=== PATIENT | male | born 1970 | race Caucasian/White ===

== ENCOUNTER 2021-02-25 16:39 | Emergency (ER) | payer OTHER ==
[~2021-02-25] VITALS: Ht 180.3 cm; Wt 136.1 kg
[2021-02-25 19:44] VITALS: BP 112/64
[2021-02-25] MEDS ORDERED: KETOROLAC TROMETH 60MG/2ML VIAL IM ONE (19:45)
== END 2021-02-25 20:23 | disposition home or self-care (01) ==
LOC: ER 16:39
DX: S46.911A Strain of unspecified muscle, fascia and tendon at shoulder and upper arm level, right arm, initial encounter (principal); M79.674 Pain in right toe(s); E11.9 Type 2 diabetes mellitus without complications; W18.00XA Striking against unspecified object with subsequent fall, initial encounter; Y93.89 Activity, other specified; Y92.89 Other specified places as the place of occurrence of the external cause; Y99.8 Other external cause status
CPT/HCPCS: 29105; 73030; 73620; 96372; 99284; J1885

== ENCOUNTER 2021-05-17 12:11 | Emergency (ER) | payer OTHER ==
[~2021-05-17] VITALS: Ht 180.3 cm; Wt 133.8 kg
[2021-05-17] MEDS ORDERED: HYDROcodone-ACET 10/325MG TAB PO ONE (15:45)
[2021-05-17 16:14] VITALS: BP 108/65
== END 2021-05-17 16:39 | disposition home or self-care (01) ==
LOC: ER 12:11
DX: S82.891A Other fracture of right lower leg, initial encounter for closed fracture (principal); S46.911A Strain of unspecified muscle, fascia and tendon at shoulder and upper arm level, right arm, initial encounter; E11.9 Type 2 diabetes mellitus without complications; W01.0XXA Fall on same level from slipping, tripping and stumbling without subsequent striking against object, initial encounter; Y93.89 Activity, other specified; Y92.89 Other specified places as the place of occurrence of the external cause; Y99.8 Other external cause status
CPT/HCPCS: 29515; 71101; 73030; 73610

== ENCOUNTER 2021-10-29 09:43 | Emergency (ER) | payer MEDICAID ==
[~2021-10-29] VITALS: Ht 180.3 cm; Wt 136.1 kg
[2021-10-29 10:48] LABS: Basophils # (auto) 0.1 10 ^3/uL (0-0.2); Eosinophils # (auto) 0.2 10 ^3/uL (0-0.8); Lymphocytes # (auto) 2.2 10 ^3/uL (0.4-5.4); Mean Corpuscular Volume 62.5 fL (80.0-100.0); Monocytes # (auto) 0.5 10 ^3/uL (0-1.3); Neutrophils # (auto) 4.4 10 ^3/uL (1.6-8.6); White Blood Cell 7.3 10^3/uL (4.4-10.8)
[2021-10-29 10:50] LABS: Basophils % (auto) 0.8 % (0.0-2.0); Eosinophils % (auto) 2.1 % (0.0-7.0); Hematocrit 38.1 % (41.0-53.0); Hemoglobin 12.1 g/dL (13.5-17.5); Mean Corpuscular Hemoglobin 19.8 pg (28.0-32.0); Mean Corpuscular Hgb Conc. 31.6 g/dL (32.0-36.0); Monocytes % (auto) 7.1 % (0.0-12.0); Nucleated Red Blood Cells % 0.1 %; Red Cell Distribution Width 15.4 % (11.8-14.3)
[2021-10-29 10:53] LABS: Albumin 3.5 g/dL (3.4-5.0); Calcium 8.9 mg/dL (8.5-10.1); Potassium 4.3 mmol/L (3.5-5.1)
[2021-10-29 10:57] LABS: BUN/Creatinine Ratio 12.4; Bilirubin, Total 0.8 mg/dL (0.2-1.0); Total Protein 7.4 g/dL (6.4-8.2)
[2021-10-29 12:45] VITALS: BP 144/77
== END 2021-10-29 12:45 | disposition home or self-care (01) ==
LOC: ER 09:43
DX: K43.2 Incisional hernia without obstruction or gangrene (principal); E11.9 Type 2 diabetes mellitus without complications
CPT/HCPCS: 36415; 74176; 80053; 83690; 84484; 85025

== ENCOUNTER 2022-05-21 06:30 | Emergency (ER) | payer MEDICAID ==
[~2022-05-21] VITALS: Ht 180.3 cm; Wt 136.0 kg
[2022-05-21 07:19] VITALS: BP 113/90
[2022-05-21] MEDS ORDERED: SODIUM CHLORIDE 0.9% 500 ML IVB ONE (07:45)
[2022-05-21] MEDS ORDERED: MORPHINE SULFATE 4 MG/ML SYR/VIAL IV ONE (07:45)
[2022-05-21] MEDS ORDERED: ONDANSETRON HCL 4 MG/2 ML VIAL IV ONE (07:45)
[2022-05-21 08:44] LABS: Urine Bacteria NONE SEEN /hpf (None Seen); Urine Blood Negative /uL (Negative); Urine Specific Gravity 1.029 (1.001-1.035); Urine WBC <1 /hpf (0 - 3)
[2022-05-21] MEDS ORDERED: HYDR-4902 PO (08:48)
[2022-05-21 08:53] LABS: Basophils # (auto) 0.1 10 ^3/uL (0-0.2); Basophils % (auto) 0.9 % (0.0-2.0); Eosinophils # (auto) 0.2 10 ^3/uL (0-0.8); Eosinophils % (auto) 2.1 % (0.0-7.0); Hematocrit 40.7 % (41.0-53.0); Hemoglobin 13.2 g/dL (13.5-17.5); Lymphocytes # (auto) 2.6 10 ^3/uL (0.4-5.4); Lymphocytes % (auto) 29.2 % (10.0-50.0); Mean Corpuscular Hemoglobin 20.3 pg (28.0-32.0); Mean Corpuscular Hgb Conc. 32.5 g/dL (32.0-36.0); Mean Corpuscular Volume 62.5 fL (80.0-100.0); Monocytes # (auto) 0.6 10 ^3/uL (0-1.3); Monocytes % (auto) 6.6 % (0.0-12.0); Neutrophils # (auto) 5.5 10 ^3/uL (1.6-8.6); Neutrophils % (auto) 61.2 % (37.0-80.0); Nucleated Red Blood Cells % 0.2 %; Red Blood Cells 6.51 10^6/uL (4.5-5.90); Red Cell Distribution Width 14.9 % (11.8-14.3)
[2022-05-21 09:31] LABS: Albumin 3.8 g/dL (3.4-5.0); Calcium 8.9 mg/dL (8.5-10.1); Potassium 4.4 mmol/L (3.5-5.1)
[2022-05-21 09:34] LABS: BUN/Creatinine Ratio 14.2; Bilirubin, Total 0.8 mg/dL (0.2-1.0); Total Protein 7.7 g/dL (6.4-8.2)
== END 2022-05-21 15:09 | disposition home or self-care (01) ==
LOC: ER 06:30
DX: K40.90 Unilateral inguinal hernia, without obstruction or gangrene, not specified as recurrent (principal); E11.9 Type 2 diabetes mellitus without complications
CPT/HCPCS: 36415; 74176; 80053; 81001; 82150; 82962; 83690; 85025

== ENCOUNTER 2022-08-24 12:01 | Emergency (ER) | payer MEDICAID ==
[~2022-08-24] VITALS: Ht 180.3 cm; Wt 136.3 kg
[~2022-08-24 12:01] MED LIST: HYDR-4902 PO
[2022-08-24 12:40] VITALS: BP 118/70
[2022-08-24] MEDS ORDERED: CEPH-510 PO (14:02)
== END 2022-08-24 14:06 | disposition home or self-care (01) ==
LOC: ER 12:01
DX: S61.244A Puncture wound with foreign body of right ring finger without damage to nail, initial encounter (principal); E11.9 Type 2 diabetes mellitus without complications; W46.0XXA Contact with hypodermic needle, initial encounter; Y93.89 Activity, other specified; Y92.89 Other specified places as the place of occurrence of the external cause; Y99.8 Other external cause status
CPT/HCPCS: 10120

== ENCOUNTER 2023-07-15 17:40 | Emergency (ER) | payer MEDICAID ==
[~2023-07-15] VITALS: Ht 175.3 cm; Wt 138.2 kg
[~2023-07-15 17:40] MED LIST changes: +CEPH-510 PO
[2023-07-15] MEDS ORDERED: ONDANSETRON HCL 4 MG/2 ML VIAL IV ONE (18:15)
[2023-07-15] MEDS ORDERED: SODIUM CHLORIDE 0.9% 1,000 ML IV ONE (18:15)
[2023-07-15 19:30] LABS: Basophils # (auto) 0.1 10 ^3/uL (0-0.2); Basophils % (auto) 0.6 % (0.0-2.0); Eosinophils # (auto) 0.1 10 ^3/uL (0-0.8); Eosinophils % (auto) 1.4 % (0.0-7.0); Hematocrit 38.4 % (41.0-53.0); Lymphocytes # (auto) 3.7 10 ^3/uL (0.4-5.4); Mean Corpuscular Hemoglobin 19.6 pg (28.0-32.0); Mean Corpuscular Hgb Conc. 31.3 g/dL (32.0-36.0); Mean Corpuscular Volume 62.6 fL (80.0-100.0); Monocytes # (auto) 0.6 10 ^3/uL (0-1.3); Monocytes % (auto) 6.1 % (0.0-12.0); Neutrophils % (auto) 56.9 % (37.0-80.0); Nucleated Red Blood Cells % 0.2 %; Red Blood Cells 6.12 10^6/uL (4.5-5.90); Red Cell Distribution Width 14.7 % (11.8-14.3); White Blood Cell 10.6 10^3/uL (4.4-10.8)
[2023-07-15 19:40] LABS: Alanine Aminotransferase 14 U/L (7-40); Albumin 4.4 g/dL (3.2-4.8); Alkaline Phosphatase 105 U/L (46-116); Anion Gap 10 (5-15); Aspartate Aminotransferase 10 U/L (13-40); BUN/Creatinine Ratio 7.6 (10.0-20.0); Bilirubin, Total 0.9 mg/dL (0.2-1.0); Blood Urea Nitrogen 9 mg/dL (9-23); Calcium 9.5 mg/dL (8.7-10.4); Carbon Dioxide 25 mmol/L (20-30); Chloride 101 mmol/L (98-107); Glucose 249 mg/dL (74-106); Potassium 3.9 mmol/L (3.5-5.1); Sodium 136 mmol/L (136-145); Total Protein 7.5 g/dL (5.7-8.2)
[2023-07-15 20:09] LABS: Hypochromia Moderate; Platelet Estimate Adequate
[2023-07-15 20:45] LABS: Urine Bacteria NONE SEEN /hpf (None Seen); Urine Blood Negative /uL (Negative); Urine Clarity Clear (Clear); Urine Color Yellow (Yellow); Urine Protein, UAD Negative (Negative); Urine Specific Gravity 1.025 (1.001-1.035); Urine WBC <1 /hpf (0 - 3); Urine pH 5.5 (5.0-8.0)
[2023-07-15] MEDS ORDERED: ZOFR4T PO (21:10)
[2023-07-15 21:24] VITALS: BP 104/54; PULSE 85; RESP 20; TEMP 98.5; O2SAT 92
== END 2023-07-15 21:33 | disposition home or self-care (01) ==
LOC: ER 17:40
DX: E11.65 Type 2 diabetes mellitus with hyperglycemia (principal); I10 Essential (primary) hypertension
CPT/HCPCS: 36415; 71046; 80053; 81001; 82962; 85025; 96361; 96374; 99284; J2405; J7030

== ENCOUNTER 2024-01-17 21:01 | Emergency (ER) | payer MEDICAID ==
[~2024-01-17] VITALS: Ht 180.3 cm; Wt 141.5 kg
[~2024-01-17 21:01] MED LIST changes: +IBUP-1456 PO; +ZOFR4T PO
[2024-01-17 22:04] LABS: Basophils # (auto) 0.1 10 ^3/uL (0-0.2); Basophils % (auto) 0.9 % (0.0-2.0); Eosinophils # (auto) 0.2 10 ^3/uL (0-0.8); Hemoglobin 11.5 g/dL (13.5-17.5); Lymphocytes # (auto) 3.3 10 ^3/uL (0.4-5.4); Mean Corpuscular Hemoglobin 19.8 pg (28.0-32.0); Monocytes # (auto) 0.9 10 ^3/uL (0-1.3); Neutrophils % (auto) 60.6 % (37.0-80.0); Nucleated Red Blood Cells % 0.1 %
[2024-01-17 22:06] LABS: Hematocrit 36.4 % (41.0-53.0); Lymphocytes % (auto) 28.5 % (10.0-50.0); Mean Corpuscular Hgb Conc. 31.4 g/dL (32.0-36.0); Neutrophils # (auto) 6.9 10 ^3/uL (1.6-8.6); Red Blood Cells 5.78 10^6/uL (4.5-5.90); Red Cell Distribution Width 14.8 % (11.8-14.3); White Blood Cell 11.4 10^3/uL (4.4-10.8)
[2024-01-17 22:22] LABS: Alanine Aminotransferase 14 U/L (7-40); Alkaline Phosphatase 101 U/L (46-116); Anion Gap 7 (5-15); Aspartate Aminotransferase < 8 U/L (13-40); BUN/Creatinine Ratio 12.3 (10.0-20.0); Bilirubin, Total 0.6 mg/dL (0.2-1.0); Blood Urea Nitrogen 13 mg/dL (9-23); Calcium 9.4 mg/dL (8.5-10.1); Carbon Dioxide 26 mmol/L (20-30); Chloride 102 mmol/L (98-107); Glucose 344 mg/dL (74-106); Sodium 135 mmol/L (136-145); Total Protein 6.8 g/dL (5.7-8.2)
[2024-01-17 23:51] LABS: Urine Bacteria None Seen /hpf (None Seen)
[2024-01-18 00:32] VITALS: BP 136/70; PULSE 80; RESP 80; TEMP 97.5; O2SAT 95
[2024-01-18 01:08] LABS: Urine Blood Negative /uL (Negative); Urine Clarity Clear (Clear); Urine Color Light-Yellow (Yellow); Urine Protein, UAD Negative (Negative); Urine Specific Gravity 1.031 (1.001-1.035); Urine Urobilinogen 2 mg/dL (Negative); Urine WBC <1 /hpf (0 - 3); Urine pH 5.5 (5.0-9.0)
== END 2024-01-18 00:34 | disposition home or self-care (01) ==
LOC: ER 21:01
DX: E11.65 Type 2 diabetes mellitus with hyperglycemia (principal); I10 Essential (primary) hypertension; Z98.890 Other specified postprocedural states; Z79.899 Other long term (current) drug therapy
CPT/HCPCS: 36415; 80053; 81001; 82010; 82962; 85025

== ENCOUNTER 2024-03-29 05:18 | Emergency (ER) | payer MEDICAID ==
[~2024-03-29] VITALS: Ht 180.3 cm; Wt 139.1 kg
[2024-03-29 07:11] LABS: Basophils # (auto) 0.1 10 ^3/uL (0-0.2); Eosinophils # (auto) 0.2 10 ^3/uL (0-0.8); Monocytes # (auto) 0.8 10 ^3/uL (0-1.3); Monocytes % (auto) 8.2 % (0.0-12.0); Nucleated Red Blood Cells % 0.2 %; White Blood Cell 9.6 10^3/uL (4.4-10.8)
[2024-03-29 07:12] LABS: Basophils % (auto) 0.7 % (0.0-2.0); Eosinophils % (auto) 2.2 % (0.0-7.0); Hematocrit 36.4 % (41.0-53.0); Hemoglobin 11.9 g/dL (13.5-17.5); Lymphocytes # (auto) 2.9 10 ^3/uL (0.4-5.4); Lymphocytes % (auto) 30.6 % (10.0-50.0); Mean Corpuscular Hemoglobin 20.8 pg (28.0-32.0); Mean Corpuscular Hgb Conc. 32.6 g/dL (32.0-36.0); Neutrophils # (auto) 5.6 10 ^3/uL (1.6-8.6); Neutrophils % (auto) 58.3 % (37.0-80.0); Platelet Count (auto) 281 10^3/uL (140-450); Red Blood Cells 5.69 10^6/uL (4.5-5.90)
[2024-03-29 07:18] LABS: Chloride 104 mmol/L (98-107); Sodium 136 mmol/L (136-145)
[2024-03-29 07:19] LABS: Anion Gap 2 (5-15); Carbon Dioxide 30 mmol/L (20-30)
[2024-03-29 07:20] LABS: Calcium 9.6 mg/dL (8.7-10.4)
[2024-03-29 07:24] LABS: BUN/Creatinine Ratio 13.1 (10.0-20.0); Blood Urea Nitrogen 13 mg/dL (9-23); Glucose 205 mg/dL (74-106)
[2024-03-29] MEDS ORDERED: AZIT1POW PO (08:48)
[2024-03-29 10:49] VITALS: BP 120/72; PULSE 78; RESP 18; TEMP 97.8; O2SAT 94
== END 2024-03-29 11:06 | disposition home or self-care (01) ==
LOC: ER 05:18
DX: J20.9 Acute bronchitis, unspecified (principal); I10 Essential (primary) hypertension; E11.9 Type 2 diabetes mellitus without complications; E78.5 Hyperlipidemia, unspecified; Z98.890 Other specified postprocedural states; Z79.899 Other long term (current) drug therapy
CPT/HCPCS: 36415; 71046; 80048; 84484; 85025; 93005

== ENCOUNTER 2024-07-07 05:19 | Emergency (ER) | payer MEDICAID ==
[~2024-07-07] VITALS: Ht 180.3 cm; Wt 139.0 kg
[~2024-07-07 05:19] MED LIST changes: +AZIT1POW PO
[2024-07-07 06:35] VITALS: BP 107/66; PULSE 95; RESP 19; TEMP 98.1; O2SAT 95
[2024-07-07] MEDS ORDERED: IBUP-1455 PO (06:59)
[2024-07-07] MEDS ORDERED: METH4PAK PO (06:59)
--- NOTE | 2024-07-07 07:00 | ED.PDOC ---
Back pain HPI HPI Comments Portions of this chart may have been created with an modal fluency direct voice recognition software. Occasional wrong-word or "sound-alike" substitutions may have occurred due to the inherent limitations of voice recognition software. Please read the chart carefully and recognize, using context, where these substitutions have occurred. This is a pleasant 53-year-old gentleman with a history of diabetes, hyperlipidemia, hypertension, who presents with a chief complaint of atraumatic nonradiating right shoulder pain x1 day. Patient reports the pain is like an electric-like sensation that radiates from the neck and shoots down the arm Symptoms are also described as burning and worsened with abduction of the right upper extremity Onset occurred this morning after waking up Symptoms described as moderate Denies chest pain shortness of breath Chief Complaint: Neck Pain Time Seen by MD: 06:26 Primary Care Provider: "I don't know" Reviewed Notes: Nurses Notes, Medications, Allergies Allergies: Coded Allergies: No Known Drug Allergy (Verified Allergy, Unknown, 05/17/21) Home Meds Active Scripts Azithromycin (Zithromax) 1 Gm Pow, 1 PACK PO ONCE, #1 PACK Prov:JOESPH NIELSEN MD 03/29/24 Ibuprofen (Ibuprofen) 800 Mg Tab, 1 TAB PO TID, #30 TAB Prov:MARY ANN GREENE 10/17/23 Ondansetron Odt 4MG Tab (ZOFRAN PO) 4 Mg Tb, 4 MG PO Q8HP PRN for 5 Days, #15 TAB ODT TAB-DISSOLVE IN MOUTH, THEN SWALLOW Prov:JOESPH NIELSEN MD 07/15/23 Cephalexin ( Keflex 500) 500 Mg Cap, 1 CAP PO QID, #28 CAP Prov:MARY ANN GREENE 08/24/22 Hydrocodone-Acetaminophen (Hydrocodone Bitartrate/AC 5-325 mg) 1 Tab Tab, 1 TAB PO Q6HP PRN for 7 Days, #28 TAB Prov:JOESPH NIELSEN MD 05/21/22 Information Source: Patient Mode of Arrival: Ambulatory Past Medical History PAST MEDICAL HISTORY: DM, High Lipids, HTN Surgical History: Hernia Repair, Tonsillectomy Family History Family History: Family hx of DM, Family hx of Cancer Social History Smoker: Non-Smoker Alcohol: Occasionally Drugs: Denies Drug Use Lives In: Home All Other Systems: Reviewed and Negative (Per HPI) Physical Exam General Appearance: No Apparent Distress, Normal HEENT: Normal ENT Inspection, Pharynx Normal, TMs Normal Neck: Full Range of Motion, Non-Tender, Normal, Normal Inspection Respiratory: Chest Non-Tender, Lungs Clear, No Accessory Muscle Use, No Respiratory Distress, Normal Breath Sounds Cardiovascular: No Edema, No JVD, No Murmur, No Gallop, Normal Peripheral Pulses, Regular Rate/Rhythm Breast Exam: Deferred Gastrointestinal: No Organomegaly, Non Tender, No Pulsatile Mass, Normal Bowel Sounds, Soft Genitalia: Deferred Pelvic: Deferred Rectal: Deferred Extremities: No calf tenderness, Normal capillary refill, Normal inspection, Normal range of motion, Non-tender, No pedal edema Musculoskeletal : Location: Right Extremity Location: Shoulder (No gross abnormality on inspection. No shoulder drop visible. No clavicular tenderness on palpation. Palpation tenderness to coracoid process and acromion process. No scapular, supraspinatus, infraspinatus tenderness to touch. Limited flexion passive movement due to pain. Pain with abduction. ) Apperance: Normal Neurologic: Alert, division merchandise manager II-XII nml as Tested, No Motor Deficits, Normal Affect, Normal Mood, No Sensory Deficits Cerebellar Function: Normal Reflexes: Normal Skin: Dry, Normal Color, Warm Lymphatic: No Adenopathy Was a procedure done? Was a procedure done?: No Back Pain Differential Dx Differential Diagnosis: Musculoskeletal Pain X-Ray, Labs, Meds, VS Vital Signs Date Time Temp Pulse Resp B/P (MAP) Pulse Ox O2 Delivery O2 Flow Rate FiO2 07/07/24 06:35 98.1 95 19 107/66 (80) 95 98.1 07/07/24 06:35 95 19 95 Room Air 07/07/24 05:28 98.1 95 19 107/66 (80) 95 X-Ray, Labs, Meds, VS Comment History and physical exam consistent with cervical radiculopathy. Symptomatic treatment will be initiated at discharge Supportive care advised (rest, ice, heat, NSAIDs, stretching exercises) Massage muscles with cold pack or ice for 20 minutes 4 times per day. Usually most useful if there is swelling during the first 48 hours Heating pad on the most painful area for 20 minutes to relieve muscle spasm Sleep and the most comfortable sleeping position (usually on the side with knees bent) Light stretching, no strenuous activity, avoid frequent bending, avoid carrying heavy objects Discussed possible benefits of yoga and acupuncture Return precautions discussed including Inability to walk/bear weight Paresthesia/weakness/leg pain Fecal/urinary incontinence Any worsening symptoms Time of 1ST Reevaluation: 06:58 Reevaluation 1ST: Improved Patient Education/Counseling: Diagnosis, Treatment Family Education/Counseling: Diagnosis, Treatment Departure 1 Departure Time of Disposition: 06:58 Impression: Primary Impression: Cervical radiculopathy Disposition: HOME / SELF CARE / HOMELESS Condition: Stable e-Prescriptions Methylprednisolone (Medrol Dosepak) 4 Mg Thai 4 MG PO UD, #21 TAB UAD Prov: ANTONY AUGUST NP 07/07/24 Ibuprofen Micronized (Ibuprofen) 800 Mg Tab 800 MG PO TIDWM for 14 Days, #42 TAB 0 Refills Prov: ANTONY AUGUST NP 07/07/24 Discharged With: Self Critical Care Note Critical Care Time?: No Stability Stability form required: No Heart Score Heart Score: Heart Score Response (Comments) Value History N/A 0 EKG N/A 0 Age N/A 0 Risk Factors N/A 0 Troponin N/A 0 Total 0 ANTONY AUGUST NP Jul 07, 2024 07:00
[2024-07-07] MEDS: KETOROLAC TROMETH 60MG/2ML VIAL IM ONE (07:14)
== END 2024-07-07 07:22 | disposition home or self-care (01) ==
LOC: ER 05:19
DX: M54.12 Radiculopathy, cervical region (principal); E11.9 Type 2 diabetes mellitus without complications; E78.5 Hyperlipidemia, unspecified; I10 Essential (primary) hypertension; Z79.899 Other long term (current) drug therapy; Z98.890 Other specified postprocedural states
CPT/HCPCS: 96372; 99283; J1885

== ENCOUNTER 2024-09-13 03:52 | Emergency (ER) | payer MEDICAID ==
[~2024-09-13] VITALS: Ht 180.3 cm; Wt 138.7 kg
[~2024-09-13 03:52] MED LIST changes: +IBUP-1455 PO; +METH4PAK PO
[2024-09-13] MEDS: methylPREDNISolone SOD SUCC 125 MG/2 ML VL IM ONE (07:16)
[2024-09-13] MEDS: KETOROLAC TROMETH 30 MG/ML 1ML VIAL IM ONE (07:16)
[2024-09-13] MEDS ORDERED: CYCL-837 PO (07:17)
[2024-09-13] MEDS ORDERED: IBUP-1455 PO (07:17)
--- NOTE | 2024-09-13 07:17 | ED.PDOC ---
Musculoskeletal HPI Comments 53-year-old male complaining of right shoulder pain x3 weeks. States no recent injury. Says he woke up the pain started hernia. Pain radiates to his neck. Nothing makes it better, movement makes it worse. States the pain is worse in the morning and then by the time he starts moving pain started to decrease. Chief Complaint: Upper Extremity Time Seen by MD: 06:43 Primary Care Provider: "I don't know" Reviewed Notes: Nurses Notes Allergies: Coded Allergies: No Known Drug Allergy (Verified Allergy, Unknown, 05/17/21) Home Meds Active Scripts Methylprednisolone (Medrol Dosepak) 4 Mg Thai, 4 MG PO UD, #21 TAB UAD Prov:ANTONY AUGUST NP 07/07/24 Ibuprofen Micronized (Ibuprofen) 800 Mg Tab, 800 MG PO TIDWM for 14 Days, #42 TAB 0 Refills Prov:ANTONY AUGUST NP 07/07/24 Azithromycin (Zithromax) 1 Gm Pow, 1 PACK PO ONCE, #1 PACK Prov:JOESPH NIELSEN MD 03/29/24 Ibuprofen (Ibuprofen) 800 Mg Tab, 1 TAB PO TID, #30 TAB Prov:MARY ANN GREENE 10/17/23 Ondansetron Odt 4MG Tab (ZOFRAN PO) 4 Mg Tb, 4 MG PO Q8HP PRN for 5 Days, #15 TAB ODT TAB-DISSOLVE IN MOUTH, THEN SWALLOW Prov:JOESPH NIELSEN MD 07/15/23 Cephalexin ( Keflex 500) 500 Mg Cap, 1 CAP PO QID, #28 CAP Prov:MARY ANN GREENE 08/24/22 Hydrocodone-Acetaminophen (Hydrocodone Bitartrate/AC 5-325 mg) 1 Tab Tab, 1 TAB PO Q6HP PRN for 7 Days, #28 TAB Prov:JOESPH NIELSEN MD 05/21/22 Information Source: Patient Mode of Arrival: Ambulatory Past Medical History PAST MEDICAL HISTORY: DM, High Lipids, HTN Surgical History: Hernia Repair, Tonsillectomy Family History Family History: Family hx of DM, Family hx of Cancer Social History Smoker: Non-Smoker Alcohol: Occasionally Drugs: Denies Drug Use Lives In: Home Constitutional: denies: chills, diaphoresis, fatigue, fever, malaise, sweats, weakness, others EENTM: denies: blurred vision, double vision, ear bleeding, ear discharge, ear drainage, ear pain, ear ringing, eye pain, eye redness, hearing loss, mouth pain, mouth swelling, nasal discharge, nose bleeding, nose congestion, nose pain, photophobia, tearing, throat pain, throat swelling, voice changes, others Respiratory: denies: cough, hemoptysis, orthopnea, SOB at rest, shortness of breath, SOB with excertion, stridor, wheezing, others Cardiovascular: denies: chest pain, dizzy spells, diaphoresis, Dyspnea on exertion, edema, irregular heart beat, left arm pain, lightheadedness, palpitations, PND, syncope, others Gastrointestinal: denies: abdomen distended, abdominal pain, blood streaked bowels, constipated, diarrhea, dysphagia, difficulty swallowing, hematemesis, melena, nausea, poor appetite, poor fluid intake, rectal bleeding, rectal pain, vomiting, others Genitourinary: denies: burning, dysuria, flank pain, frequency, hematuria, incontinence, penile discharge, penile sore, pain, testicle pain, testicle swelling, urgency, others Neurological: denies: dizziness, fainting, headache, left sided numbness, left sided weakness, numbness, paresthesia, pre-existing deficit, right sided numbness, right sided weakness, seizure, speech problems, tingling, tremors, weakness, others Musculoskeletal: reports: joint pain, joint swelling; denies: back pain, gout, muscle pain, muscle stiffness, neck pain, others Integumetry: denies: bruises, change in color, change in hair/nails, dryness, laceration, lesions, lumps, rash, wounds, others Allergic/Immunocompromised: denies: Difficulty Healing, Frequent Infections, Hives, Itching, others Physical Exam General Appearance: No Apparent Distress, Normal HEENT: Normal ENT Inspection, Pharynx Normal, TMs Normal Neck: Full Range of Motion, Non-Tender, Normal, Normal Inspection Respiratory: Chest Non-Tender, Lungs Clear, No Accessory Muscle Use, No Respiratory Distress, Normal Breath Sounds Cardiovascular: No Edema, No JVD, No Murmur, No Gallop, Normal Peripheral Pulses, Regular Rate/Rhythm Breast Exam: Deferred Gastrointestinal: No Organomegaly, Non Tender, No Pulsatile Mass, Normal Bowel Sounds, Soft Genitalia: Deferred Pelvic: Deferred Rectal: Deferred Extremities: No calf tenderness, Normal capillary refill, Normal inspection, Normal range of motion, Non-tender, No pedal edema Musculoskeletal : Location: Right Extremity Location: Shoulder (Limited range of motion right shoulder due to pain. Negative empty can.) Apperance: Normal Neurologic: Alert, clinical training specialist II-XII nml as Tested, No Motor Deficits, Normal Affect, Normal Mood, No Sensory Deficits Cerebellar Function: Normal Reflexes: Normal Skin: Dry, Normal Color, Warm Lymphatic: No Adenopathy Was a procedure done? Was a procedure done?: No Differential Diagnosis EXT Differential Diagnosis: Fracture, Sprain, Dislocation X-Ray, Labs, Meds, VS Vital Signs Date Time Temp Pulse Resp B/P (MAP) Pulse Ox O2 Delivery O2 Flow Rate FiO2 09/13/24 04:00 97.5 87 18 130/70 (90) 95 X-Ray, Labs, Meds, VS Comment Imaging: X-rays and CT scans were reviewed and interpreted by this provider, imaging shows no fractures and no pathological disease. Pending radiology review. Laboratory: Labs reviewed and interpreted by this provider. No significant abnormalities noted. Patient has prior medical visits reviewed. Med reconciliation performed Vital signs reviewed Time of 1ST Reevaluation: 07:17 Reevaluation 1ST: Improved Patient Education/Counseling: Diagnosis, Treatment, Need For Follow Up (Patient advised to follow-up in the emergency room in the next 24 to 48 hours if symptoms do not improve. Advised follow-up with PCP in the next 3 to 5 days. Patient verbalized understanding. ) Family Education/Counseling: No Family Present Departure 1 Departure Time of Disposition: 07:16 Impression: Primary Impression: Right shoulder strain Qualified Codes: S46.911A - Strain of unspecified muscle, fascia and tendon at shoulder and upper arm level, right arm, initial encounter Disposition: HOME / SELF CARE / HOMELESS Condition: Fair e-Prescriptions Cyclobenzaprine Hcl (Cyclobenzaprine Hcl) 5 Mg Tab 1 TAB PO TID PRN, #30 TAB Prov: ZANA HERNANDEZ HOMEOPATHIC DOCTOR 09/13/24 Ibuprofen Micronized (Ibuprofen) 800 Mg Tab 800 MG PO TID PRN, #40 TAB Prov: ZANA HERNANDEZP 09/13/24 Discharged With: Self Critical Care Note Critical Care Time?: No Stability Stability form required: No Heart Score Heart Score: Heart Score Response (Comments) Value History N/A 0 EKG N/A 0 Age N/A 0 Risk Factors N/A 0 Troponin N/A 0 Total 0 ZANA HERNANDEZ Sep 13, 2024 07:17
[2024-09-13 07:28] VITALS: BP 130/70; PULSE 87; RESP 18; TEMP 97.5; O2SAT 95
== END 2024-09-13 07:34 | disposition home or self-care (01) ==
LOC: ER 03:52
DX: S46.911A Strain of unspecified muscle, fascia and tendon at shoulder and upper arm level, right arm, initial encounter (principal); I10 Essential (primary) hypertension; E11.9 Type 2 diabetes mellitus without complications; Z79.1 Long term (current) use of non-steroidal anti-inflammatories (NSAID); Z90.89 Acquired absence of other organs; Z98.890 Other specified postprocedural states; X58.XXXA Exposure to other specified factors, initial encounter; Y93.89 Activity, other specified; Y92.89 Other specified places as the place of occurrence of the external cause; Y99.8 Other external cause status
CPT/HCPCS: 96372; 99284; J1885; J2919

== ENCOUNTER 2024-10-12 05:58 | Emergency (ER) | payer MEDICAID ==
[~2024-10-12] VITALS: Ht 180.3 cm; Wt 139.3 kg
[~2024-10-12 05:58] MED LIST changes: +CYCL-837 PO
--- NOTE | 2024-10-12 07:14 | DVH ---
EXAM: XR Right Shoulder Complete, 2 or More Views CLINICAL INDICATION: PAIN TECHNIQUE: Two or more views of the right shoulder. COMPARISON: R SHOULDER COMPLETE XRAY on DOS: 05/17/21 FINDINGS: BONES/JOINTS: Mild degenerative change of the acromioclavicular and glenohumeral joints. No disloc ation. No acute fracture. SOFT TISSUES: Unremarkable. OTHER FINDINGS: . IMPRESSION: No acute fracture.
[2024-10-12 07:23] VITALS: BP 120/76; PULSE 97; RESP 16; TEMP 98.4; O2SAT 96
[2024-10-12] MEDS ORDERED: LIDO5DIS21 TOP (07:35)
[2024-10-12] MEDS ORDERED: MELO7.5T7 PO (07:35)
--- NOTE | 2024-10-12 07:38 | ED.PDOC ---
Musculoskeletal HPI Comments 53 year male presents for right shoulder pain x 4 weeks No trauma No erythema, warmth or fevers Worsens with movement and rated as moderate Chief Complaint: Upper Extremity Time Seen by MD: 06:46 Primary Care Provider: "I don't know" Reviewed Notes: Nurses Notes, Medications, Allergies Allergies: Coded Allergies: No Known Drug Allergy (Verified Allergy, Unknown, 05/17/21) Home Meds Active Scripts Cyclobenzaprine Hcl (Cyclobenzaprine Hcl) 5 Mg Tab, 1 TAB PO TID PRN, #30 TAB Prov:ZANA HERNANDEZP 09/13/24 Ibuprofen Micronized (Ibuprofen) 800 Mg Tab, 800 MG PO TID PRN, #40 TAB Prov:ZANA HERNANDEZP 09/13/24 Methylprednisolone (Medrol Dosepak) 4 Mg Thai, 4 MG PO UD, #21 TAB UAD Prov:ANTONY AUGUST NP 07/07/24 Ibuprofen Micronized (Ibuprofen) 800 Mg Tab, 800 MG PO TIDWM for 14 Days, #42 TAB 0 Refills Prov:ANTONY AUGUST NP 07/07/24 Azithromycin (Zithromax) 1 Gm Pow, 1 PACK PO ONCE, #1 PACK Prov:JOESPH NIELSEN MD 03/29/24 Ibuprofen (Ibuprofen) 800 Mg Tab, 1 TAB PO TID, #30 TAB Prov:MARY ANN GREENE 10/17/23 Ondansetron Odt 4MG Tab (ZOFRAN PO) 4 Mg Tb, 4 MG PO Q8HP PRN for 5 Days, #15 TAB ODT TAB-DISSOLVE IN MOUTH, THEN SWALLOW Prov:JOESPH NIELSEN MD 07/15/23 Cephalexin ( Keflex 500) 500 Mg Cap, 1 CAP PO QID, #28 CAP Prov:MARY ANN GREENE 08/24/22 Hydrocodone-Acetaminophen (Hydrocodone Bitartrate/AC 5-325 mg) 1 Tab Tab, 1 TAB PO Q6HP PRN for 7 Days, #28 TAB Prov:JOESPH NIELSEN MD 05/21/22 Information Source: Patient Mode of Arrival: Ambulatory Past Medical History PAST MEDICAL HISTORY: DM, High Lipids, HTN Surgical History: Hernia Repair, Tonsillectomy Family History Family History: Reviewed,noncontributory to illness, Family hx of DM, Family hx of Cancer Social History Smoker: Non-Smoker Alcohol: Occasionally Drugs: Denies Drug Use Lives In: Home All Other Systems: Reviewed and Negative (Per HPI) Physical Exam General Appearance: No Apparent Distress, Normal HEENT: Normal ENT Inspection, Pharynx Normal, TMs Normal Neck: Full Range of Motion, Non-Tender, Normal, Normal Inspection Respiratory: Chest Non-Tender, Lungs Clear, No Accessory Muscle Use, No Respiratory Distress, Normal Breath Sounds Cardiovascular: No Murmur, No Gallop, Regular Rate/Rhythm Breast Exam: Deferred Gastrointestinal: No Organomegaly, Non Tender, No Pulsatile Mass, Normal Bowel Sounds, Soft Genitalia: Deferred Pelvic: Deferred Rectal: Deferred Extremities: No calf tenderness, Normal capillary refill, Normal inspection, Normal range of motion, Non-tender, No pedal edema Musculoskeletal : Apperance: Normal Neurologic: Alert, No Motor Deficits, Normal Affect, Normal Mood, No Sensory Deficits Cerebellar Function: Normal Reflexes: Normal Skin: Dry, Normal Color, Warm Lymphatic: No Adenopathy Was a procedure done? Was a procedure done?: No Differential Diagnosis EXT Differential Diagnosis: Sprain, Arthritis X-Ray, Labs, Meds, VS Vital Signs Date Time Temp Pulse Resp B/P (MAP) Pulse Ox O2 Delivery O2 Flow Rate FiO2 10/12/24 07:23 98.4 97 16 120/76 (91) 96 98.4 10/12/24 07:23 97 16 96 Room Air 10/12/24 06:02 98.4 97 16 120/76 (91) 96 98.4 PATIENT: AMALIA HERNÁNDEZ EACCT: [id number]: [id number] : 1970 LOC: ER ROOM / BED: / AGE / SEX: 53 / M ADM STATUS: REG ER SERVICE [id number] ORDERING PHYSICIAN: REINA AMOS PROCEDURE(s): RSHD2 - R SHOULDER 2+ VIEW XRAY REASON: PAIN ORDER NUMBER(s): [id number], ACCESSION NUMBER(s): [id number] EXAM: XR Right Shoulder Complete, 2 or More Views CLINICAL INDICATION: PAIN TECHNIQUE: Two or more views of the right shoulder. COMPARISON: R SHOULDER COMPLETE XRAY on DOS: 05/17/21 FINDINGS: BONES/JOINTS: Mild degenerative change of the acromioclavicular and glenohumeral joints. No dislocation. No acute fracture. SOFT TISSUES: Unremarkable. OTHER FINDINGS: . IMPRESSION: No acute fracture. ATED BY: REJI DIAL MD DICTATED DATE/TIME: 10/12/24710 SIGNED BY: REJI DIAL MD SIGNED DATE/TIME: 10/12/24710 CC: X-Ray, Labs, Meds, VS Comment On reevaluation, patient had symptomatic improvement. Patient is stable for discharge at this time. External notes reviewed. Test results and diagnostic imaging interpreted. All diagnostic findings, discharge care, education and instructions provided Follow-up with PCP in 2 to 3 days Patient verbalized understanding and agreed to treatment plan Vital signs stable, afebrile, no acute distress noted Patient ambulatory with strong steady gait Advised to return precautions for any new or worsening symptoms, return to ER immediately for re-evaluation Patient is aware that the purpose of this visit was for an acute medical helena gency requiring emergent stabilization. Chronic conditions, including malignancies have not been ruled out. Patient is instructed to follow up with PCP as directed and discharge instructions for continued care and workup. If unable to arrange follow-up, patient is to return to the emergency department for reassessment. Patient (parent or legal guardian if applicable) was given v erbal and written discharge instructions and acknowledges understanding. Time of 1ST Reevaluation: 07:33 Reevaluation 1ST: Improved Patient Education/Counseling: Diagnosis, Treatment Family Education/Counseling: Diagnosis, Treatment Departure 1 Departure Time of Disposition: 07:33 Impression: Primary Impression: Shoulder arthritis Qualified Codes: M19.011 - Primary osteoarthritis, right shoulder Disposition: HOME / SELF CARE / HOMELESS Condition: Stable e-Prescriptions Lidocaine (LIDODERM 5% TOPICAL PATCH) 1 Patch Ph 1 PATCH TOP DAILY for 30 Days, #30 PATCH 0 Refills Prov: ANTONY AUGUST SAFETY GROOVING MACHINE OPERATOR 10/12/24 Meloxicam (Meloxicam) 7.5 Mg Tab 1 TAB PO DAILY for 30 Days, #30 TAB 0 Refills Prov: ANTONY AUGUST SAFETY GROOVING MACHINE OPERATOR 10/12/24 Critical Care Note Critical Care Time?: No Stability Stability form required: No Heart Score Heart Score: Heart Score Response (Comments) Value History N/A 0 EKG N/A 0 Age N/A 0 Risk Factors N/A 0 Troponin N/A 0 Total 0 ANTONY AUGUST NP Oct 12, 2024 07:38
[2024-10-12] MEDS: KETOROLAC TROMETH 30 MG/ML 1ML VIAL IM ONE (07:57)
== END 2024-10-12 07:58 | disposition home or self-care (01) ==
LOC: ER 05:58
DX: M19.011 Primary osteoarthritis, right shoulder (principal); E11.9 Type 2 diabetes mellitus without complications; I10 Essential (primary) hypertension; E78.5 Hyperlipidemia, unspecified; Z98.890 Other specified postprocedural states; Z90.89 Acquired absence of other organs; Z79.1 Long term (current) use of non-steroidal anti-inflammatories (NSAID); Z79.899 Other long term (current) drug therapy
CPT/HCPCS: 73030; 96372; 99283; J1885

== ENCOUNTER 2025-02-28 21:20 | Inpatient (IN) | payer MEDICAID ==
[~2025-02-28] VITALS: Ht 180.3 cm; Wt 142.8 kg
[~2025-02-28 21:20] MED LIST changes: +ATOR20TA PO; +CHOL20007 PO; +CIPR-173 PO; +GLIP10TA9 PO; +INSUINJ18 SC; +LIDO5DIS21 TOP; +LISI2.5T47 PO; +MELO7.5T7 PO; +METF-372 PO; +NALO4SPR2; +SEMA2INJ3 SC
--- NOTE | 2025-02-28 23:24 | ED.PDOC ---
History of Present Illness HPI Comments 54 y/o M is BIBA for c/c posterior head and neck and lower back pain s/p syncope and fall. Patient reports on passing out and falling from a standing position earlier today. Patient states he was going to get something to eat, then remembers waking up on the ground. His advised him that he had passed out. Patient denies history of syncope in the past. Significant history of DM, HTN, HLD, hernia repair. Chief Complaint: Syncope Time Seen by MD: 11:20 Primary Care Provider: "I don't know" Reviewed Notes: Nurses Notes, Meter Mechanic Notes, Medications, Allergies Allergies: Coded Allergies: No Known Drug Allergy (Verified Allergy, Unknown, 05/17/21) Home Meds Active Scripts Ciprofloxacin Hcl (Cipro) 500 Mg Tab, 1 TAB PO BID for 14 Days, #28 TAB Prov:ITALO WILKS 10/23/24 Naloxone HCl (Narcan) 4 Mg/0.1 Ml Spr, 4 MG NA ONCE for 1 Day, #1 SPRAY Prov:ITALO WILKS 10/23/24 Hydrocodone-Acetaminophen (Hydrocodone Bitartrate/AC 5-325 mg) 1 Tab Tab, 1 TAB PO TIDPRN PRN for 7 Days, #21 TAB Prov:ITALO WILKS 10/23/24 Lidocaine (LIDODERM 5% TOPICAL PATCH) 1 Patch Ph, 1 PATCH TOP DAILY for 30 Days, #30 PATCH 0 Refills Prov:ANTONY AUGUST NP 10/12/24 Meloxicam (Meloxicam) 7.5 Mg Tab, 1 TAB PO DAILY for 30 Days, #30 TAB 0 Refills Prov:ANTONY AUGUST NP 10/12/24 Cyclobenzaprine Hcl (Cyclobenzaprine Hcl) 5 Mg Tab, 1 TAB PO TID PRN, #30 TAB Prov:ZANA HERNANDEZ 09/13/24 Ibuprofen Micronized (Ibuprofen) 800 Mg Tab, 800 MG PO TID PRN, #40 TAB Prov:ZANA HERNANDEZP 09/13/24 Methylprednisolone (Medrol Dosepak) 4 Mg Thai, 4 MG PO UD, #21 TAB UAD Prov:ANTONY AUGUST NP 07/07/24 Ibuprofen Micronized (Ibuprofen) 800 Mg Tab, 800 MG PO TIDWM for 14 Days, #42 TAB 0 Refills Prov:MATAANTONY NP 07/07/24 Azithromycin (Zithromax) 1 Gm Pow, 1 PACK PO ONCE, #1 PACK Prov:JOESPH NIELSEN MD 03/29/24 Ibuprofen (Ibuprofen) 800 Mg Tab, 1 TAB PO TID, #30 TAB Prov:MARY ANN GREENE 10/17/23 Ondansetron Odt 4MG Tab (ZOFRAN PO) 4 Mg Tb, 4 MG PO Q8HP PRN for 5 Days, #15 TAB ODT TAB-DISSOLVE IN MOUTH, THEN SWALLOW Prov:JOESPH NIELSEN MD 07/15/23 Cephalexin ( Keflex 500) 500 Mg Cap, 1 CAP PO QID, #28 CAP Prov:MARY ANN GREENE 08/24/22 Hydrocodone-Acetaminophen (Hydrocodone Bitartrate/AC 5-325 mg) 1 Tab Tab, 1 TAB PO Q6HP PRN for 7 Days, #28 TAB Prov:JOESPH NIELSEN MD 05/21/22 Reported Medications Cholecalciferol (VITAMIN D3) 2,000 Unit Tab, 25 MCG PO DAILY, TAB 10/20/24 Glipizide (Glipizide) 10 Mg Tab, 10 MG PO DAILY, TAB 10/20/24 Atorvastatin Calcium (Lipitor) 20 Mg Tab, 20 MG PO DAILY, TAB 10/20/24 Lisinopril (Lisinopril) 2.5 Mg Tab, 10 MG PO DAILY, TAB 10/20/24 Metformin Hydrochloride (Metformin Hcl) 1,000 Mg Tab, 1 TAB PO BID, #60 TAB 5 Refills 10/20/24 Semaglutide (Ozempic) 2 Mg/3 Ml Inj, 1 MG SC QWEEKLY, INJ 10/20/24 Insulin Aspart Protamine & Asp (Novolog Mix 70/30 Prefill (70-30) 100 Unit/ml) 1 Inj Inj, 1 INJ SC BID, INJ 10/20/24 Information Source: Patient, Emergency Med Personnel Mode of Arrival: EMS Severity: Moderate Timing: Hours Duration: Since onset Prehospital treatment: 12 Lead EKG, Accucheck, Master Craftsman Past Medical History PAST MEDICAL HISTORY: DM, High Lipids, HTN Surgical History: Hernia Repair, Tonsillectomy Family History Family History: Reviewed,noncontributory to illness, Family hx of DM, Family hx of Cancer Social History Smoker: Non-Smoker Alcohol: Occasionally Drugs: Denies Drug Use Lives In: Home All Other Systems: Reviewed and Negative (Comprehensive review of systems are negative unless otherwise stated in HPI) Physical Exam General Appearance: No Apparent Distress, Obese HEENT: Other (Pupils and face symmetric. Moist mucous membranes.) Neck: Full Range of Motion, Normal Inspection Respiratory: Lungs Clear, No Accessory Muscle Use, No Respiratory Distress, Normal Breath Sounds Cardiovascular: No Edema, No JVD, Regular Rate/Rhythm Breast Exam: Deferred Gastrointestinal: Non Tender, Soft Genitalia: Deferred Pelvic: Deferred Rectal: Deferred Extremities: Leg edema, Normal inspection, Normal range of motion, Non-tender, Pedal edema Neurologic: Alert (Oriented x4), Normal Affect, Normal Mood, Other (No gross focal deficit) Cerebellar Function: NOT DONE Reflexes: NOT DONE Skin: Dry, Normal Color, Warm Lymphatic: NOT DONE Was a procedure done? Was a procedure done?: No EKG EKG : Comments Sinus rhythm, rate 78, [place] prolonged at 236, normal QRS and QTC intervals, left axis deviation, possible old inferior infarct, nonspecific T change. Differential Dx Considerations may include: vasovagal syncope, viral syndrome, arrhythmia, mi, vertigo, dehydration/hypovolemia, electrolyte imbalance, concussion, skull fracture, intracranial hemorrhage, among others. X-Ray, Labs, Meds, VS Vital Signs Date Time Temp Pulse Resp B/P (MAP) Pulse Ox O2 Delivery O2 Flow Rate FiO2 03/01/25 06:39 97.3 71 16 116/67 (83) 95 97.3 03/01/25 03:20 97.7 69 20 115/66 (82) 96 97.7 03/01/25 03:20 69 20 96 Room Air 02/28/25 21:36 78 02/28/25 21:32 97.6 76 18 135/84 96 97.6 Lab Test 03/01/25 04:00 03/01/25 00:31 02/28/25 23:34 Range/Units Urine Color Yellow Yellow Urine Clarity Clear Clear Urine pH 5.5 5.0-9.0 Urine Specific [place] 1.032 1.001-1.035 Urine Protein Negative Negative Urine Ketones Negative Negative Urine Blood Negative Negative /uL Urine Nitrite Negative Negative Urine Bilirubin Negative Negative Urine Urobilinogen Normal Negative mg/dL Urine Leukocyte Esterase Negative Negative /uL Urine RBC None seen 0 - 3 /hpf Urine Microscopic WBC 1 0-3 /HPF Urine Squamous Epithelial Cells None seen <5 /hpf Urine Bacteria None seen None Seen /hpf Urine Mucus Few None Seen Urine Glucose Normal Normal mg/dL Troponin I High Sensitivity < 3 L < 3 L </=54 ng/L White Blood Count 9.5 4.4-10.8 10^3/uL Red Blood Count 5.61 4.5-5.90 10^6/uL Hemoglobin 11.5 L 13.5-17.5 g/dL Hematocrit 35.2 L 41.0-53.0 % Mean Corpuscular Volume 62.7 L 80.0-100.0 fL Mean Corpuscular Hemoglobin 20.6 L 28.0-32.0 pg Mean Corpuscular Hemoglobin Concent 32.8 32.0-36.0 g/dL Red Cell Distribution Width 15.8 H 11.8-14.3 % Platelet Count 294 140-450 10^3/uL Mean Platelet Volume 8.7 6.9-10.8 fL Neutrophils (%) (Auto) 60.8 37.0-80.0 % Lymphocytes (%) (Auto) 27.5 10.0-50.0 % Monocytes (%) (Auto) 7.4 0.0-12.0 % Eosinophils (%) (Auto) 3.3 0.0-7.0 % Basophils (%) (Auto) 1.0 0.0-2.0 % Neutrophils # (Auto) 5.8 1.6-8.6 10 ^3/uL Lymphocytes # (Auto) 2.6 0.4-5.4 10 ^3/uL Monocytes # (Auto) 0.7 0-1.3 10 ^3/uL Eosinophils # (Auto) 0.3 0-0.8 10 ^3/uL Basophils # (Auto) 0.1 0-0.2 10 ^3/uL Nucleated Red Blood Cells 0.2 % Sodium Level 140 136-145 mmol/L Potassium Level 4.2 3.5-5.1 mmol/L Chloride Level 107 98-107 mmol/L Carbon Dioxide Level 23 20-31 mmol/L Anion Gap 10 5-15 Blood Urea Nitrogen 14 9-23 mg/dL Creatinine 0.82 0.700-1.30 mg/dL Glomerular Filtration Rate Calc 104 >90 mL/min BUN/Creatinine Ratio 17.1 10.0-20.0 Serum Glucose 167 H 74-106 mg/dL Calcium Level 9.1 8.7-10.4 mg/dL B-Type Natriuretic Peptide 21.86 0-100 pg/mL Current Medications Medications (Trade) Dose Ordered Sig/Ethel Route Start Time Stop Time Status Last Admin Acetaminophen/ Hydrocodone Bitart ([place] 10/325MG Tab) 1 tab ONCE ONCE PO 02/28/25 23:30 02/28/25 23:31 DC 03/01/25 03:16 Meclizine HCl (Antivert Tablet) 50 mg ONCE ONCE PO 03/01/25 03:00 03/01/25 03:03 DC 03/01/25 03:15 PROCEDURE(s): HWOCT - HEAD WITHOUT CONTRAST REASON: Syncope with head trauma ORDER NUMBER(s): [id number], ACCESSION NUMBER(s): [id number] EXAM: CT HEAD WITHOUT CONTRAST INDICATION: Syncope with head trauma TECHNIQUE: CT of the head without intravenous contrast. Radiation Dose : 1. Head: CT Dose: CTDI volume is 28 mGy. Dose-length product is 01/16/1984 mGy*cm The dose indicators for CT are the volume Computed Tomography (CT) Dose Index (CTDIvol) and the Dose Length Product (DLP), and are measured in units of mGy and mGy-cm, respectively. These indicators are not patient dose, but values generated from the CT scanner acquisition factors. The report includes radiation exposure data for exposures received during this examination. COMPARISON: None FINDINGS: Brain: No acute hemorrhage, mass effect, or cerebral edema. CSF Spaces: Size and morphology within normal limits. Bones/Soft Tissues: No acute findings. Orbits/Sinuses/Mastoids: Unremarkable as visualized. IMPRESSION: 1. No acute intracranial abnormality. Radiation optimization: All CT scans at this facility use at least one of these dose optimization techniques: automated exposure control mA and/or kV adjustment per patient size (includes targeted exams where dose is matched to clinical indication) or iterative reconstruction. EDURE(s): CS2 - CERVICAL WITHOUT CONTRAST REASON: Neck pain status post syncope ORDER NUMBER(s): [id number], ACCESSION NUMBER(s): [id number] EXAM: CT CERVICAL WITHOUT CONTRAST HISTORY: Neck pain status post syncope COMPARISON: None CTDIvol 28 mGy, DLP 01/16/1984 mGy*cm. TECHNIQUE: Multiple axial CT images of the spine were obtained using bone algorithm. Axial and coronal reformatting was done. Bone and soft tissue windows were reviewed. FINDINGS: Inferior [id number] extends to the mid C7 vertebral body. No evidence of acute fracture or compression deformity. 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 Normal lordotic curvature without listhesis. Mild multilevel spondylosis. No acute findings of the imaged intracranial contents or neck soft tissues. The lung apices are excluded. IMPRESSION: 1. No acute finding of the imaged cervical spine, with inferior C7 and the cervicothoracic junction excluded from field of view. EDURE(s): CXRP - CHEST PORTABLE REASON: Syncope ORDER NUMBER(s): [id number], ACCESSION NUMBER(s): [id number] CHEST RADIOGRAPH REASON FOR EXAM: Syncope COMPARISON: XY CHEST XRAY 1 VIEW on DOS: 10/20/24, XY CHEST TWO VIEWS ROUTINE on DOS: 03/29/24, XY CHEST TWO VIEWS ROUTINE on DOS: 07/15/23, R RIB XRAY on DOS: 05/17/21 TECHNIQUE: One view of the chest is provided FINDINGS: The cardiomediastinal silhouette is stably enlarged. There is pulmonary venous congestion. There is no focal airspace disease. There is no significant pleural effusion. There is no pneumothorax. IMPRESSION: Cardiomegaly. Pulmonary venous congestion. EDURE(s): LS2CT - LS SPINE WO CONTRAST REASON: Low back pain status post syncope ORDER NUMBER(s): [id number], ACCESSION NUMBER(s): [id number] EXAM: CT LS SPINE WO CONTRAST INDICATION: Low back pain status post syncope TECHNIQUE: Axial images of the lumbar spine have been obtained along with coronal and sagittal reformatted images. CT scans at this facility use dose modulation, iterative reconstruction, and/or weight based dosing when appropriate to reduce radiation dose to as low as reasonably achievable. Dose: CTDIvol: 27.8 mGy, DLP: 2683.68 mGy.cm COMPARISON: None FINDINGS: Evaluation is degraded by poor signal to noise ratio. Mild age-indeterminate compression of the superior endplate of T11 without retropulsion. The vertebral body heights are otherwise well-maintained. There are degenerative changes of the lumbar spine characterized by endplate osteophytosis and intervertebral disc space narrowing. Level by level evaluation is suboptimal given poor signal to noise ratio. No definite high-grade spinal stenosis is seen. A disc protrusion with associated osteophyte at L3-4 effaces the thecal sac. The paraspinal soft tissues are unremarkable. IMPRESSION: 1. Mild age-indeterminate compression of the superior endplate of T11 without retropulsion. 2. Degenerative changes of the lumbar spine as detailed. X-Ray, Labs, Meds, VS Comment 54-year-old male with history of diabetes, hypertension and dyslipidemia brought in by family complaining of dizziness all day, then a syncopal episode which caused him to fall, hit his head on a wall and develop neck and back pain Vitals unremarkable Exam remarkable for occipital soft tissue tenderness, midline and paraspinal neck tenderness and lumbar midline and paraspinal tenderness Rhythm strip independently interpreted by me: Sinus rhythm, rate 78, no ectopy. CT head, cervical spine, and lumbar spine unremarkable for any acute finding Chest x-ray IMPRESSION: Cardiomegaly. Pulmonary venous congestion. CBC, basic metabolic panel, BNP and 2 serial troponins unremarkable Patient treated with the following in the ED: [place] 5/325 mg p.o., meclizine 50 mg p.o. On re-evaluation, patient states his pain has improved, however he still is feeling dizzy. Plan is to admit the patient for brain MRI and Neurology evaluation. Time of 1ST Reevaluation: 11:50 Reevaluation 1ST: Unchanged Patient Education/Counseling: Diagnosis, Treatment Family Education/Counseling: No Family Present SEPSIS Sepsis Screen Date sepsis recognized/suspect: Feb 28, 2025 Time Sepsis recognized/suspect: 2135 Recent Procedure: No On Antibiotic Therapy: No Respiratory Rate >20: No Heart Rate >90: No Temp<36 C (96.8 F) or >38.3 C: No SBP <90 or MAP <65 mmHG: No New Acute Mental Status Change: No Is the patient on CPAP, BIPAP,: No Physician Orders Chest Portable (02/28/25 23:24) Head Without Contrast (02/28/25 23:24) Cervical Without Contrast (02/28/25 23:24) Ls Spine Wo Contrast (02/28/25 23:24) Vital Signs Date Time Temp Pulse Resp B/P (MAP) Pulse Ox O2 Delivery O2 Flow Rate FiO2 03/01/25 06:39 97.3 71 16 116/67 (83) 95 97.3 03/01/25 03:20 97.7 69 20 115/66 (82) 96 97.7 03/01/25 03:20 69 20 96 Room Air 02/28/25 21:36 78 02/28/25 21:32 97.6 76 18 135/84 96 97.6 Laboratory Tests Test 02/28/25 23:34 White Blood Count 9.5 10^3/uL (4.4-10.8) Medications Medications Dose Ordered Sig/Ethel Route Start Time Stop Time Status Last Admin Dose Admin Acetaminophen/ Hydrocodone Bitart 1 tab ONCE ONCE PO 02/28/25 23:30 02/28/25 23:31 DC 03/01/25 03:16 Meclizine HCl 50 mg ONCE ONCE PO 03/01/25 03:00 03/01/25 03:03 DC 03/01/25 03:15 Departure 1 Departure Time of Disposition: 02:00 Impression: Primary Impression: Syncope and collapse Additional Impression: Dizziness Disposition: 09 ADMITTED INPATIENT Admit to: Tele Condition: Guarded Critical Care Note Critical Care Time?: No Stability Stability form required: No Heart Score Heart Score: Heart Score Response (Comments) Value History N/A 0 EKG N/A 0 Age N/A 0 Risk Factors N/A 0 Troponin N/A 0 Total 0 I personally scribed for JUAN JOSÉ APARICIO MD ([email or web address]) on 02/28/25 at 23:24. Electronically submitted by Darnell Galicia ([email or web address]). I personally scribed for JUAN JOSÉ APARICIO MD ([email or web address]) on 03/01/25 at 00:22. Electronically submitted by Darnell Galicia ([email or web address]). JUAN JOSÉ APARICIO MD Feb 28, 2025 23:24
--- NOTE | 2025-03-01 00:06 | DVH ---
EXAM: CT HEAD WITHOUT CONTRAST INDICATION: Syncope with head trauma TECHNIQUE: CT of the head without intravenous contrast. Radiation Dose : 1. Head: CT Dose: CTDI volume is 28 mGy. Dose-length product is 01/16/1984 mGy*cm The dose indicators for CT are the volume Computed Tomography (CT) Dose Index (CTDIvol) and the Dose Length Product (DLP), and are measured in units of mGy and mGy-cm, respectively. These indicators are not patient dose, but values generated from the CT scanner acquisition factors. The report includes radiation exposure data for exposures received during this examination. COMPARISON: None FINDINGS: Brain: No acute hemorrhage, mass effect, or cerebral edema. CSF Spaces: Size and morphology within normal limits. Bones/Soft Tissues: No acute findings. Orbits/Sinuses/Mastoids: Unremarkable as visualized. IMPRESSION: 1. No acute intracranial abnormality. Radiation optimization: All CT scans at this facility use at least one of these dose optimization quynh hniques: automated exposure control mA and/or kV adjustment per patient size (includes targeted exam s where dose is matched to clinical indication) or iterative reconstruction.
[2025-03-01 00:07] LABS: Hematocrit 35.2 % (41.0-53.0); Hemoglobin 11.5 g/dL (13.5-17.5); Mean Corpuscular Hemoglobin 20.6 pg (28.0-32.0); Mean Corpuscular Volume 62.7 fL (80.0-100.0); Nucleated Red Blood Cells % 0.2 %
--- NOTE | 2025-03-01 00:07 | DVH ---
CHEST RADIOGRAPH REASON FOR EXAM: Syncope COMPARISON: XY CHEST XRAY 1 VIEW on DOS: 10/20/24, XY CHEST TWO VIEWS ROUTINE on DOS: 03/29/24, XY CHEST TWO VIEWS ROUTINE on DOS: 07/15/23, R RIB XRAY on DOS: 05/17/21 TECHNIQUE: One view of the chest is provided FINDINGS: The cardiomediastinal silhouette is stably enlarged. There is pulmonary venous congestion. There is no focal airspace disease. There is no significant pleural effusion. There is no pneumothor ax. IMPRESSION: Cardiomegaly. Pulmonary venous congestion.
--- NOTE | 2025-03-01 00:11 | DVH ---
EXAM: CT CERVICAL WITHOUT CONTRAST HISTORY: Neck pain status post syncope COMPARISON: None CTDIvol 28 mGy, DLP 01/16/1984 mGy*cm. TECHNIQUE: Multiple axial CT images of the spine were obtained using bone algorithm. Axial and york l reformatting was done. Bone and soft tissue windows were reviewed. FINDINGS: Inferior [id number] extends to the mid C7 vertebral body. No evidence of acute fracture or compression deformity. Nonunited odontoid process with resultant chr onic /developmental atlanto-basion widening. Normal lordotic curvature without listhesis. Mild multi level spondylosis. No acute findings of the imaged intracranial contents or neck soft tissues. The lung apices are excl uded. IMPRESSION: 1. No acute finding of the imaged cervical spine, with inferior C7 and the cervicothoracic junction e xcluded from field of view.
[2025-03-01 00:16] LABS: Anion Gap 10 (5-15); Carbon Dioxide 23 mmol/L (20-31); Potassium 4.2 mmol/L (3.5-5.1); Sodium 140 mmol/L (136-145)
[2025-03-01 00:17] LABS: Calcium 9.1 mg/dL (8.7-10.4)
[2025-03-01 00:18] LABS: Chloride 107 mmol/L (98-107)
[2025-03-01 00:22] LABS: BUN/Creatinine Ratio 17.1 (10.0-20.0); Blood Urea Nitrogen 14 mg/dL (9-23)
[2025-03-01 00:24] LABS: Glucose 167 mg/dL (74-106)
--- NOTE | 2025-03-01 00:36 | DVH ---
EXAM: CT LS SPINE WO CONTRAST INDICATION: Low back pain status post syncope TECHNIQUE: Axial images of the lumbar spine have been obtained along with coronal and sagittal reform atted images. CT scans at this facility use dose modulation, iterative reconstruction, and/or weight based dosing when appropriate to reduce radiation dose to as low as reasonably achievable. Dose: CTDIvol: 27.8 mGy, DLP: 2683.68 mGy.cm COMPARISON: None FINDINGS: Evaluation is degraded by poor signal to noise ratio. Mild age-indeterminate compression of the superior endplate of T11 without retropulsion. The vertebral body heights are otherwise well-maintained. There are degenerative changes of the lumb ar spine characterized by endplate osteophytosis and intervertebral disc space narrowing. Level by level evaluation is suboptimal given poor signal to noise ratio. No definite high-grade spin al stenosis is seen. A disc protrusion with associated osteophyte at L3-4 effaces the thecal sac. The paraspinal soft tissues are unremarkable. IMPRESSION: 1. Mild age-indeterminate compression of the superior endplate of T11 without retropulsion. 2. Degenerative changes of the lumbar spine as detailed.
[2025-03-01] MEDS: MECLIZINE HCL 25 MG TAB PO ONE (03:15)
[2025-03-01] MEDS: HYDROcodone-ACET 10/325MG TAB PO ONE ×2 (03:16→08:07)
[2025-03-01 05:13] LABS: Urine Protein, UAD Negative (Negative)
--- NOTE | 2025-03-01 06:39 | ECG ---
[facility] Test Date: 2025-02-28 Test Time: 21:36:22 Pat Name: AMALIA HERNÁNDEZ Department: ED Room: [address] [place] [address] Gender: M Road Repairer: LB : 1970 Requested By: JUAN JOSÉ MAYER Order Number: [id number] Reading MD: Malik Collins Measurements Intervals [place] Rate: 78 P: 8 PA: 236 QRS: -3 QRSD: 94 T: -3 QT: 366 QTc: 417 Interpretive Statements Sinus rhythm Prolonged PA interval Low voltage, precordial leads Borderline T abnormalities, inferior leads Electronically Signed On 03-01-2025 22:09:04 PDT by Malik Collins Please click the below link to view image of tracing.
--- NOTE | 2025-03-01 08:41 | DVHHP2 ---
Admitting Diagnosis: Syncope History of Present Illness 54 y male with hx of DM, HTN, HLD c/o syncope. Patient sts that he was walking to his kitchen and then woke up on the floor. While in the emergency department the patient was evaluated by the provider, As per provider: Labs, vital signs, and imagining monitored. Patient will be admitted for further evaluation and treatment. I discussed admission with the patient/family and is in agreement to treatment plan. Patient Family History: Diabetes mellitus G8 FATHER FHx: lung cancer Inguinal hernia Allergies: Coded Allergies: No Known Drug Allergy (Verified Allergy, Unknown, 05/17/21) Home Meds Active Scripts Ciprofloxacin Hcl (Cipro) 500 Mg Tab, 1 TAB PO BID for 14 Days, #28 TAB Prov:ITALO WILKS 10/23/24 Naloxone HCl (Narcan) 4 Mg/0.1 Ml Spr, 4 MG NA ONCE for 1 Day, #1 SPRAY Prov:ITALO WILKS 10/23/24 Hydrocodone-Acetaminophen (Hydrocodone Bitartrate/AC 5-325 mg) 1 Tab Tab, 1 TAB PO TIDPRN PRN for 7 Days, #21 TAB Prov:ITALO WILKS 10/23/24 Lidocaine (LIDODERM 5% TOPICAL PATCH) 1 Patch Ph, 1 PATCH TOP DAILY for 30 Days, #30 PATCH 0 Refills Prov:ANTONY AUGUST NP 10/12/24 Meloxicam (Meloxicam) 7.5 Mg Tab, 1 TAB PO DAILY for 30 Days, #30 TAB 0 Refills Prov:ANTONY AUGUST NP 10/12/24 Cyclobenzaprine Hcl (Cyclobenzaprine Hcl) 5 Mg Tab, 1 TAB PO TID PRN, #30 TAB Prov:ZANA HERNANDEZP 09/13/24 Ibuprofen Micronized (Ibuprofen) 800 Mg Tab, 800 MG PO TID PRN, #40 TAB Prov:ZANA HERNANDEZP 09/13/24 Methylprednisolone (Medrol Dosepak) 4 Mg Thai, 4 MG PO UD, #21 TAB UAD Prov:ANTONY AUGUST NP 07/07/24 Ibuprofen Micronized (Ibuprofen) 800 Mg Tab, 800 MG PO TIDWM for 14 Days, #42 TAB 0 Refills Prov:ANTONY AUGUST NP 07/07/24 Azithromycin (Zithromax) 1 Gm Pow, 1 PACK PO ONCE, #1 PACK Prov:JOESPH NIELSEN MD 03/29/24 Ibuprofen (Ibuprofen) 800 Mg Tab, 1 TAB PO TID, #30 TAB Prov:MARY ANN GREENE 10/17/23 Ondansetron Odt 4MG Tab (ZOFRAN PO) 4 Mg Tb, 4 MG PO Q8HP PRN for 5 Days, #15 TAB ODT TAB-DISSOLVE IN MOUTH, THEN SWALLOW Prov:JOESPH NIELSEN MD 07/15/23 Cephalexin ( Keflex 500) 500 Mg Cap, 1 CAP PO QID, #28 CAP Prov:MARY ANN GREENE 08/24/22 Hydrocodone-Acetaminophen (Hydrocodone Bitartrate/AC 5-325 mg) 1 Tab Tab, 1 TAB PO Q6HP PRN for 7 Days, #28 TAB Prov:JOESPH NIELSEN MD 05/21/22 Reported Medications Cholecalciferol (VITAMIN D3) 2,000 Unit Tab, 25 MCG PO DAILY, TAB 10/20/24 Glipizide (Glipizide) 10 Mg Tab, 10 MG PO DAILY, TAB 10/20/24 Atorvastatin Calcium (Lipitor) 20 Mg Tab, 20 MG PO DAILY, TAB 10/20/24 Lisinopril (Lisinopril) 2.5 Mg Tab, 10 MG PO DAILY, TAB 10/20/24 Metformin Hydrochloride (Metformin Hcl) 1,000 Mg Tab, 1 TAB PO BID, #60 TAB 5 Refills 10/20/24 Semaglutide (Ozempic) 2 Mg/3 Ml Inj, 1 MG SC QWEEKLY, INJ 10/20/24 Insulin Aspart Protamine & Asp (Novolog Mix 70/30 Prefill (70-30) 100 Unit/ml) 1 Inj Inj, 1 INJ SC BID, INJ 10/20/24 Current Medications Current Medications Medications (Trade) Dose Ordered Sig/Ethel Route PRN Reason Start Time Stop Time Status Last Admin Acetaminophen/ Hydrocodone Bitart ([place] 5/325MG Tab) 1 tab Q4HP PRN PO MODERATE PAIN (4-6 PAIN SCALE) 03/01/25 08:45 03/01/25 14:55 Temazepam (Restoril) 15 mg QHSP PRN PO FOR INSOMNIA 03/01/25 08:45 Ondansetron HCl (Zofran) 4 mg Q4HP PRN IV NAUSEA / VOMITING 03/01/25 08:45 03/01/25 16:36 Docusate Sodium (Colace Capsule) 100 mg BIDPRN PRN PO FOR CONSTIPATION 03/01/25 08:45 03/01/25 16:36 Enoxaparin Sodium (Lovenox) 40 mg DAILY SC 03/01/25 10:00 03/01/25 10:14 Acetaminophen (Tylenol Tablet) 650 mg Q6HP PRN PO PAIN SCALE 1-3 OR TEMP>100.4 03/01/25 08:45 Morphine Sulfate 2 mg Q4HPRN PRN IV SEVERE PAIN (7-10 PAIN SCALE) 03/01/25 08:45 Famotidine (Pepcid Tablet) 40 mg DAILY PO 03/01/25 10:00 03/01/25 10:13 Nitroglycerin (Ntrostat Sublingual) 0.4 mg Q5MINP PRN SL FOR CHEST PAIN 03/01/25 08:45 Morphine Sulfate 2 mg Q30M PRN IV FOR CHEST PAIN 03/01/25 08:45 Meclizine HCl (Antivert Tablet) 25 mg Q8HPRN PRN PO DIZZINESS 03/01/25 16:15 03/01/25 16:36 Review of Systems Constitutional: denies chills, denies fever, denies malaise Eyes: denies eye pain, denies vision change ENT: denies ear pain, denies headache, denies nasal congestion, denies painful swallowing, denies voice change Cardiovascular: denies chest pain, denies edema, denies orthopnea, denies palpitations, denies paroxysmal nocturnal dyspnea Respiratory: denies cough, denies shortness of breath Gastrointestinal: denies constipation, denies diarrhea, denies nausea, denies vomiting Genitourinary: denies dysuria, denies frequent urination, denies urethral discharge Musculoskeletal: denies back pain, denies joint pain, denies muscle pain Skin: denies bruising, denies itching, denies rash Neurological: denies focal weakness, denies headache, denies sensory changes Psychiatric: denies anxiety, denies depression Endocrine: denies polydipsia, denies polyuria Hematologic/Lymphatic: denies easy bleeding, denies easy bruising, denies enlarged lymph nodes Allergic/Immunologic: denies allergy, denies hives Vital Signs Vital Signs Date Time Temp Pulse Resp B/P (MAP) Pulse Ox O2 Delivery O2 Flow Rate FiO2 03/01/25 20:00 72 03/01/25 17:00 97.8 18 94/57 (69) 92 97.8 03/01/25 14:28 Room Air* 0 21 Physical Exam General Appearance: alert, no distress HEENT: EOMI, PERRLA, normal external inspect of ears, no icterus, no nasal drainage Neck: no carotid bruit, no jugular venous distention (JVD), no lymphadenopathy Chest: normal thorax Respiratory: clear to auscultation, normal air movement Cardiovascular: regular rate and rhythm, no diastolic murmur, no jugular venous distention (JVD), no rub, no systolic murmur Abdominal: soft, no hepatomegaly, no mass, no splenomegaly, no tenderness Genitourinary: grossly normal external Musculoskeletal: no joint tenderness, no swelling Extremities: normal pulses, no calf tenderness, no clubbing, no cyanosis, no edema Skin: no bruising, no jaundice, no rash Neurological: alert, No focal deficit SEPSIS Sepsis Screen Date sepsis recognized/suspect: Mar 01, 2025 Time Sepsis recognized/suspect: 321 Recent Procedure: No On Antibiotic Therapy: No Respiratory Rate >20: No Heart Rate >90: No Temp<36 C (96.8 F) or >38.3 C: No SBP <90 or MAP <65 mmHG: No New Acute Mental Status Change: No Is the patient on CPAP, BIPAP,: No Physician Orders Chest Portable (02/28/25 23:24) Head Without Contrast (02/28/25 23:24) Cervical Without Contrast (02/28/25 23:24) Ls Spine Wo Contrast (02/28/25 23:24) Admit (03/01/25 08:38) Code Status (03/01/25 08:38) 2 Gm Sodium Diet (03/01/25 Breakfast) Hydrocodone-Acet 5/325mg Tab ([place] 5/32 (03/01/25 08:45) Temazepam (Restoril) (03/01/25 08:45) Ondansetron Hcl (Zofran) (03/01/25 08:45) Docusate Sodium Capsule (Colace Capsule) (03/01/25 08:45) Enoxaparin Sodium (Lovenox) (03/01/25 10:00) Complete Blood Count (03/02/25 04:00) Comprehensive Metabolic Panel (03/02/25 04:00) Echo 2d Mode Cardiac Dop (03/01/25 08:38) Condition: Fair (03/01/25 08:38) Acetaminophen Tablet (Tylenol Tablet) (03/01/25 08:45) Morphine Sulfate Injection (03/01/25 08:45) Sequential Compression Device (03/01/25 ) *Consult Dr. Joao Payton (03/01/25 08:38) *Consult Dr. Sirena Reyez (03/01/25 08:38) Famotidine Tablet (Pepcid Tablet) (03/01/25 10:00) Nitroglycerin Sublingual (Ntrostat Subli (03/01/25 08:45) Morphine Sulfate Injection (03/01/25 08:45) Stat Ekg For Chest Pain (03/01/25 08:38) Notify Md Of Changes From Base (03/01/25 08:38) Blueprinting And Photocopy Supervisor For 24 Hours (03/01/25 08:38) Emergency Dysrhythmia Protocol (03/01/25 08:38) Rhythm Strips Once Every Shift (03/01/25 08:38) Oxygen By Nasal Cannula (03/01/25 08:38) Pt Request For Service (03/01/25 15:23) Meclizine Tablet (Antivert Tablet) (03/01/25 16:15) Orthostatic Vital Signs (03/01/25 ) Vital Signs Date Time Temp Pulse Resp B/P (MAP) Pulse Ox O2 Delivery O2 Flow Rate FiO2 03/01/25 20:00 72 03/01/25 17:00 97.8 72 18 94/57 (69) 92 97.8 03/01/25 16:00 83 03/01/25 14:28 Room Air* 0 21 03/01/25 14:28 74 23 102/62 (75) 93 03/01/25 12:00 67 03/01/25 12:00 97.9 80 20 105/60 (75) 93 97.9 03/01/25 10:44 72 22 105/81 (89) 92 03/01/25 08:11 97.8 68 16 117/76 (90) 95 97.8 03/01/25 06:39 97.3 71 16 116/67 (83) 95 97.3 03/01/25 03:20 97.7 69 20 115/66 (82) 96 97.7 03/01/25 03:20 69 20 96 Room Air 02/28/25 21:36 78 02/28/25 21:32 97.6 76 18 135/84 96 97.6 Laboratory Tests Test 02/28/25 23:34 White Blood Count 9.5 10^3/uL (4.4-10.8) Medications Medications Dose Ordered Sig/Ethel Route Start Time Stop Time Status Last Admin Dose Admin Enoxaparin Sodium 40 mg DAILY SC 03/01/25 10:00 03/01/25 10:14 Famotidine 40 mg DAILY PO 03/01/25 10:00 03/01/25 10:13 Meclizine HCl 25 mg Q8HPRN PRN PO 03/01/25 16:15 03/01/25 16:36 Results Labs Test 03/01/25 10:54 03/01/25 04:00 03/01/25 00:31 02/28/25 23:34 Range/Units D-Dimer, Quantitative 0.34 0.0-0.49 mg/L FEU Ferritin 299.2 22-322 ng/mL Urine Color Yellow Yellow Urine Clarity Clear Clear Urine pH 5.5 5.0-9.0 Urine Specific [place] 1.032 1.001-1.035 Urine Protein Negative Negative Urine Ketones Negative Negative Urine Blood Negative Negative /uL Urine Nitrite Negative Negative Urine Bilirubin Negative Negative Urine Urobilinogen Normal Negative mg/dL Urine Leukocyte Esterase Negative Negative /uL Urine RBC None seen 0 - 3 /hpf Urine Microscopic WBC 1 0-3 /HPF Urine Squamous Epithelial Cells None seen <5 /hpf Urine Bacteria None seen None Seen /hpf Urine Mucus Few None Seen Urine Glucose Normal Normal mg/dL Troponin I High Sensitivity < 3 L </=54 ng/L White Blood Count 9.5 4.4-10.8 10^3/uL Red Blood Count 5.61 4.5-5.90 10^6/uL Hemoglobin 11.5 L 13.5-17.5 g/dL Hematocrit 35.2 L 41.0-53.0 % Mean Corpuscular Volume 62.7 L 80.0-100.0 fL Mean Corpuscular Hemoglobin 20.6 L 28.0-32.0 pg Mean Corpuscular Hemoglobin Concent 32.8 32.0-36.0 g/dL Red Cell Distribution Width 15.8 H 11.8-14.3 % Platelet Count 294 140-450 10^3/uL Mean Platelet Volume 8.7 6.9-10.8 fL Neutrophils (%) (Auto) 60.8 37.0-80.0 % Lymphocytes (%) (Auto) 27.5 10.0-50.0 % Monocytes (%) (Auto) 7.4 0.0-12.0 % Eosinophils (%) (Auto) 3.3 0.0-7.0 % Basophils (%) (Auto) 1.0 0.0-2.0 % Neutrophils # (Auto) 5.8 1.6-8.6 10 ^3/uL Lymphocytes # (Auto) 2.6 0.4-5.4 10 ^3/uL Monocytes # (Auto) 0.7 0-1.3 10 ^3/uL Eosinophils # (Auto) 0.3 0-0.8 10 ^3/uL Basophils # (Auto) 0.1 0-0.2 10 ^3/uL Nucleated Red Blood Cells 0.2 % Sodium Level 140 136-145 mmol/L Potassium Level 4.2 3.5-5.1 mmol/L Chloride Level 107 98-107 mmol/L Carbon Dioxide Level 23 20-31 mmol/L Anion Gap 10 5-15 Blood Urea Nitrogen 14 9-23 mg/dL Creatinine 0.82 0.700-1.30 mg/dL Glomerular Filtration Rate Calc 104 >90 mL/min BUN/Creatinine Ratio 17.1 10.0-20.0 Serum Glucose 167 H 74-106 mg/dL Calcium Level 9.1 8.7-10.4 mg/dL B-Type Natriuretic Peptide 21.86 0-100 pg/mL Plan 1. Syncope Monitor, cardiology consult, echocardiogram 2. Fall Monitor, cardiology consult, echocardiogram 3. HLD Monitor, continue atorvastatin continue home meds 4. DM II and hyperglycemia Monitor, continue glipizide, insulin ss 5. HTN Monitor, continue lisinopril, antihypertensives 6. T - II compression fracture Monitor, PPI, DVT prophylaxis Plan discussed with: Patient, Other TATO BRITT FORENSIC ENGINEER Mar 01, 2025 08:41
[2025-03-01] MEDS ORDERED: NITROGLYCERIN 0.4 MG SL TAB SL PRN (08:45)
[2025-03-01] MEDS ORDERED: TEMAZEPAM 15 MG CAP PO PRN (08:45)
[2025-03-01] MEDS ORDERED: MORPHINE SULFATE INJ 2 MG/ml SYRG IV PRN ×2 (08:45)
[2025-03-01] MEDS ORDERED: ACETAMINOPHEN 325 MG TAB PO PRN (08:45)
[2025-03-01] MEDS: FAMOTIDINE 20 MG TAB PO SCH (10:13)
[2025-03-01] MEDS: ENOXAPARIN SOD 40 MG/0.4 ML SYRINGE SC SCH (10:14)
--- NOTE | 2025-03-01 10:40 | DVHINCON2 ---
Date of service: Mar 01, 2025 History of Present Illness HPI Patient is a 54-year-old gentleman who presented to the hospital after syncope and fall. He did present with low back pain/neck pain/headache after the fall. He mentions that he was walking to the kitchen when he found himself on the floor. Does not recognize/remember the circumstances around the episode. It seems that the patient was told by the that he had passed out. Denies previous episodes of the same. Denies compatible episodes. Denies any chest discomfort. Denies palpitations. Cardiology is involved for cardiac aspects of care. Patient is known to us from previous hospitalization visit when he was risk stratified prior to hernia repair surgery. Home Meds Active Scripts Ciprofloxacin Hcl (Cipro) 500 Mg Tab, 1 TAB PO BID for 14 Days, #28 TAB Prov:ITALO WILKS 10/23/24 Naloxone HCl (Narcan) 4 Mg/0.1 Ml Spr, 4 MG NA ONCE for 1 Day, #1 SPRAY Prov:ITALO WILKS 10/23/24 Hydrocodone-Acetaminophen (Hydrocodone Bitartrate/AC 5-325 mg) 1 Tab Tab, 1 TAB PO TIDPRN PRN for 7 Days, #21 TAB Prov:ITALO WILKS 10/23/24 Lidocaine (LIDODERM 5% TOPICAL PATCH) 1 Patch Ph, 1 PATCH TOP DAILY for 30 Days, #30 PATCH 0 Refills Prov:ANTONY AUGUST NP 10/12/24 Meloxicam (Meloxicam) 7.5 Mg Tab, 1 TAB PO DAILY for 30 Days, #30 TAB 0 Refills Prov:ANTONY AUGUST NP 10/12/24 Cyclobenzaprine Hcl (Cyclobenzaprine Hcl) 5 Mg Tab, 1 TAB PO TID PRN, #30 TAB Prov:ZANA HERNANDEZP 09/13/24 Ibuprofen Micronized (Ibuprofen) 800 Mg Tab, 800 MG PO TID PRN, #40 TAB Prov:ZANA HERNANDEZP 09/13/24 Methylprednisolone (Medrol Dosepak) 4 Mg Thai, 4 MG PO UD, #21 TAB UAD Prov:ANTONY AUGUST NP 07/07/24 Ibuprofen Micronized (Ibuprofen) 800 Mg Tab, 800 MG PO TIDWM for 14 Days, #42 TAB 0 Refills Prov:MATAANTONY F NON DESTRUCTIVE TESTING TECHNICIAN 07/07/24 Azithromycin (Zithromax) 1 Gm Pow, 1 PACK PO ONCE, #1 PACK Prov:JOESPH NIELSEN MD 03/29/24 Ibuprofen (Ibuprofen) 800 Mg Tab, 1 TAB PO TID, #30 TAB Prov:MARY ANN GREENE 10/17/23 Ondansetron Odt 4MG Tab (ZOFRAN PO) 4 Mg Tb, 4 MG PO Q8HP PRN for 5 Days, #15 TAB ODT TAB-DISSOLVE IN MOUTH, THEN SWALLOW Prov:JOESPH NIELSEN MD 07/15/23 Cephalexin ( Keflex 500) 500 Mg Cap, 1 CAP PO QID, #28 CAP Prov:MARY ANN GREENE 08/24/22 Hydrocodone-Acetaminophen (Hydrocodone Bitartrate/AC 5-325 mg) 1 Tab Tab, 1 TAB PO Q6HP PRN for 7 Days, #28 TAB Prov:JOESPH NIELSEN MD 05/21/22 Reported Medications Cholecalciferol (VITAMIN D3) 2,000 Unit Tab, 25 MCG PO DAILY, TAB 10/20/24 Glipizide (Glipizide) 10 Mg Tab, 10 MG PO DAILY, TAB 10/20/24 Atorvastatin Calcium (Lipitor) 20 Mg Tab, 20 MG PO DAILY, TAB 10/20/24 Lisinopril (Lisinopril) 2.5 Mg Tab, 10 MG PO DAILY, TAB 10/20/24 Metformin Hydrochloride (Metformin Hcl) 1,000 Mg Tab, 1 TAB PO BID, #60 TAB 5 Refills 10/20/24 Semaglutide (Ozempic) 2 Mg/3 Ml Inj, 1 MG SC QWEEKLY, INJ 10/20/24 Insulin Aspart Protamine & Asp (Novolog Mix 70/30 Prefill (70-30) 100 Unit/ml) 1 Inj Inj, 1 INJ SC BID, INJ 10/20/24 Past Medical History Others Past medical history includes morbid obesity, hypertension, diabetes mellitus, hyperlipidemia, old history of hernia repair, history of tonsillectomy and history of umbilical hernia. Denies smoking cigarettes/substance abuse. Denies alcohol abuse. Denies relevant family history Family History: No pertinent Hx Patient Family History: Diabetes mellitus G8 FATHER FHx: lung cancer Inguinal hernia Smoker: No Hx (Negative) Alocohol: None Drugs: None Lives with: With family Review of Systems Constitutional: Weakness Ears, Nose, & Throat: No symptom reported All Other Systems Fourteen point review of system was performed. Relevant findings as per above and as per HPI. Otherwise negative H&P Exam Vital Signs Vital Signs Date Time Temp Pulse Resp B/P (MAP) Pulse Ox O2 Delivery O2 Flow Rate FiO2 03/01/25 08:11 97.8 68 16 117/76 (90) 95 97.8 03/01/25 03:20 Room Air General Appeara: Well developed, Mild distress, Obese Head Exam: Normal inspection Eye Exam: bilateral eye PERRL Mouth: Normal Inspection Pulmonary/Respiratory: Lungs clear Cardiovascular/Chest: Edema, Regular rate Peripheral Pulses: 2+ carotid (R), 2+ carotid (L), 2+ femoral (R), 2+ femoral (L), 2+ dorsalis pedis (R), 2+ dorsalis pedis (L), 2+ Radial (R), 2+ Radial (L) Abdominal Exam: Normal bowel sounds, Soft Neuro/Mental St: Alert, Oriented Appearance: Appropriate appearance Eye contact/ Speech: Cooperative Labs/Xrays Labs Test 03/01/25 04:00 03/01/25 00:31 02/28/25 23:34 Range/Units Urine Color Yellow Yellow Urine Clarity Clear Clear Urine pH 5.5 5.0-9.0 Urine Specific [place] 1.032 1.001-1.035 Urine Protein Negative Negative Urine Ketones Negative Negative Urine Blood Negative Negative /uL Urine Nitrite Negative Negative Urine Bilirubin Negative Negative Urine Urobilinogen Normal Negative mg/dL Urine Leukocyte Esterase Negative Negative /uL Urine RBC None seen 0 - 3 /hpf Urine Microscopic WBC 1 0-3 /HPF Urine Squamous Epithelial Cells None seen <5 /hpf Urine Bacteria None seen None Seen /hpf Urine Mucus Few None Seen Urine Glucose Normal Normal mg/dL Troponin I High Sensitivity < 3 L </=54 ng/L White Blood Count 9.5 4.4-10.8 10^3/uL Red Blood Count 5.61 4.5-5.90 10^6/uL Hemoglobin 11.5 L 13.5-17.5 g/dL Hematocrit 35.2 L 41.0-53.0 % Mean Corpuscular Volume 62.7 L 80.0-100.0 fL Mean Corpuscular Hemoglobin 20.6 L 28.0-32.0 pg Mean Corpuscular Hemoglobin Concent 32.8 32.0-36.0 g/dL Red Cell Distribution Width 15.8 H 11.8-14.3 % Platelet Count 294 140-450 10^3/uL Mean Platelet Volume 8.7 6.9-10.8 fL Neutrophils (%) (Auto) 60.8 37.0-80.0 % Lymphocytes (%) (Auto) 27.5 10.0-50.0 % Monocytes (%) (Auto) 7.4 0.0-12.0 % Eosinophils (%) (Auto) 3.3 0.0-7.0 % Basophils (%) (Auto) 1.0 0.0-2.0 % Neutrophils # (Auto) 5.8 1.6-8.6 10 ^3/uL Lymphocytes # (Auto) 2.6 0.4-5.4 10 ^3/uL Monocytes # (Auto) 0.7 0-1.3 10 ^3/uL Eosinophils # (Auto) 0.3 0-0.8 10 ^3/uL Basophils # (Auto) 0.1 0-0.2 10 ^3/uL Nucleated Red Blood Cells 0.2 % Sodium Level 140 136-145 mmol/L Potassium Level 4.2 3.5-5.1 mmol/L Chloride Level 107 98-107 mmol/L Carbon Dioxide Level 23 20-31 mmol/L Anion Gap 10 5-15 Blood Urea Nitrogen 14 9-23 mg/dL Creatinine 0.82 0.700-1.30 mg/dL Glomerular Filtration Rate Calc 104 >90 mL/min BUN/Creatinine Ratio 17.1 10.0-20.0 Serum Glucose 167 H 74-106 mg/dL Calcium Level 9.1 8.7-10.4 mg/dL B-Type Natriuretic Peptide 21.86 0-100 pg/mL Assessment/Plan Plan Patient is a 54-year-old gentleman who presented to the hospital after syncope and fall. He did present with low back pain/neck pain/headache after the fall. He mentions that he was walking to the kitchen when he found himself on the floor. Does not recognize/remember the circumstances around the episode. It s eems that the patient was told by the that he had passed out. Denies previous episodes of the same. Denies compatible episodes. Denies any chest discomfort. Denies palpitations. Cardiology is involved for cardiac aspects of care. Patient is known to us from previous hospitalization visit when he was risk stratified prior to hernia repair surgery. Morbidly obese gentleman, not in acute distress. Complains of back/neck pain. No JVD. Mucosa is pink and wet. No carotid bruit. No goiter. Lungs are clear to auscultation. Not using accessory muscles of breathing. Cardiac: Regular, no thrill/gallop. Systolic murmur 2/6 in the apex is heard. Abdomen is soft. Obese. Bowel sound is positive. Extremities reveal 2+ edema bilaterally. Dorsalis pedis is 2+ bilateral Past medical history includes morbid obesity, hypertension, diabetes mellitus, hyperlipidemia, old history of hernia repair, history of tonsillectomy and history of umbilical hernia. Denies smoking cigarettes/substance abuse. Denies alcohol abuse. Denies relevant family history Echocardiogram of October 20, 2024 revealed ejection fraction of 55-60%, concentri c left ventricular hypertrophy, normal diastolic, mild biatrial enlargement, trace mitral regurgitation and right ventricular systolic pressure of 30 mm Hg. Hemoglobin: 11.5 Creatinine: 0.82 Potassium: 4.2 Troponin (high sensitive): <3 - <3 BNP: 21.86 Chest x-ray revealed: IMPRESSION: Cardiomegaly. Pulmonary venous congestion. CT of the head revealed: IMPRESSION: 1. No acute intracranial abnormality. Lumbar spine CT revealed: Evaluation is degraded by poor signal to noise ratio. Mild age-indeterminate compression of the superior endplate of T11 without retropulsion. The vertebral body heights are otherwise well-maintained. There are degenerative changes of the lumbar spine characterized by endplate osteophytosis and intervertebral disc space narrowing. Level by level evaluation is suboptimal given poor signal to noise ratio. No definite high-grade spinal stenosis is seen. A disc protrusion with associated osteophyte at L3-4 effaces the thecal sac. The paraspinal soft tissues are unremarkable. IMPRESSION: 1. Mild age-indeterminate compression of the superior endplate of T11 without retropulsion. 2. Degenerative changes of the lumbar spine as detailed. Cervical spine CT revealed: IMPRESSION: 1. No acute finding of the imaged cervical spine, with inferior C7 and the cervicothoracic junction excluded from field of view. EKG revealed sinus rhythm, first-degree AV block and nonspecific T-wave changes Tele reveals sinus rhythm Patient is a 54-year-old gentleman who presented after syncope and fall. Does complain of low back pain/neck pain. He is found to have T11 compression fracture. Echocardiogram of September was nonrevealing. Cardiac syncope is less likely but can not be ruled out. Telemetry monitoring is advised. Presentation is not considered acute coronary syndromes and serial high sensitive troponin has been negative. Recognizing normal BNP and clinical presentation, acute heart failure is not considered. Syncope Status post fall T11 compression fracture Degenerative disc disease s/p ventral hernia surgery by surgeon Diabetes mellitus Morbid obesity Hypertension Hyperlipidemia Anemia Microcytosis Cardiac suggestion for management: Manage on telemetry Follow-up on electrolytes and kidney function tests and correct abnormalities Request for D-dimer and if abnormal request for venous Doppler of lower extremities and CT angio of the lungs Repeat Echocardiogram can be considered Long-term monitor can be arranged as outpatient Evaluation and management of anemia/microcytosis as per primary team (consider requesting for serum iron/ferritin level) Evaluation and management of back pain/neck pain as per primary team/neurology Further evaluation and management depends on the above and clinical course Thank you for consultation A total of 75 minutes was spent reviewing the patient record, examining the patient, making a diagnostic and therapeutic plan, discussing this plan with medical personnel, following up on diagnostic studies and following the patient for clinical stability excluding any and all procedures. At least 50% of this time was spent in direct, [id number] contact. Thank you for allowing me to participate in this patient's care. Further recommendations will depend on patient's clinical course. Please do not hesitate to contact me if you have any questions or concerns. This medical document was created using electronic medical record system with [employer] computerized dictation system. Although this document has been carefully reviewed, there may still be some phonetic and typographical errors. These areas are purely typographical due to the imperfection of the software programs, and do not reflect any compromise in the patient's medical care. Plan discussed with: Patient, Other (nurse) REJI HAWLEY MD Mar 01, 2025 10:40
[2025-03-01 10:44] VITALS: BP 105/81; PULSE 72; RESP 22; O2SAT 92
[2025-03-01 12:00] VITALS: BP 105/60; PULSE 80; RESP 20; TEMP 97.9; O2SAT 93
[2025-03-01 14:28] VITALS: BP 102/62; PULSE 74; RESP 23; O2SAT 93
[2025-03-01] MEDS: HYDROcodone-ACET 5/325MG TAB PO PRN (14:55)
[2025-03-01] MEDS: DOCUSATE SOD 100 MG CAP PO PRN (16:36)
[2025-03-01] MEDS: ONDANSETRON HCL 4 MG/2 ML VIAL IV PRN (16:36)
[2025-03-01] MEDS: MECLIZINE HCL 25 MG TAB PO PRN (16:36)
[2025-03-01 17:00] VITALS: BP 94/57; PULSE 72; RESP 18; TEMP 97.8; O2SAT 92
--- NOTE | 2025-03-01 18:22 | DVHSR ---
APPROVED REPORT EXAM: Two-dimensional and M-mode echocardiogram with Doppler and color Doppler. Blood Pressure: 117/76 mmHg INDICATION Syncope RISK FACTORS Height: 70, Weight: 300 DIMENSIONS LVDd5.2 (3.8-5.7cm)LA (2D)4.8 (1.9-4.0cm)Aortic Root4.3 (2.0-3.7cm) LVDs3.5 (2.5-4.0cm)LA (MM) (1.9-4.0cm)Aortic Cusp Exc2.4 (1.5-2.0cm) EF (%) 60.0 (55-70%)Rt. Atrium5.0 (1.9-4.0cm)Asc. Aorta cm IVSd1.3 (0.7-1.1cm)RV (D) (1.8-2.4cm) PWd1.3 (0.7-1.1cm) Mitral Valve MitralMitral Stenosis E wave0.73m/sMV Mean GR.mmHg A wave0.59m/sMV Peak GR.43mmHg E/A ratio1.22D MVAcm2 DECEL [id number] 1/2 [id number] IVRTmsDop MVA2.51cm2 Aortic Valve Aortic ValveAortic Stenosis V11.19m/Maria Mean GR.5mmHg V21.49m/Maria Peak GR.9mmHg LVOT Diameter2.8 (1.8-2.4cm)Doppler AVA4.92cm2 Pulmonic Valve V20.82m/s Tricuspid Valve TR Velocity2.53m/s [id number] Conclusion Left ventricle: Mild concentric left ventricular hypertrophy was seen LVEF was around 60%. Left rosaura tricular diastolic function was considered normal. There was no wall motion abnormality. Right ventricle was normal-sized with normal systolic function. Both atria were mildly dilated. Aortic valve was not well visualized. There was no aortic insufficiency/stenosis. There was mild mi tral/tricuspid regurgitation. Pulmonary valve was not well visualized. Right ventricular systolic pressure was assessed at 30 mm Hg (normal) There was no pericardial effusion. IVC was normal-sized with normal respiratory variation. Aortic root was mildly dilated at 4.1 cm.
[2025-03-02] VITALS (9 sets, daily range): BP systolic 108–129; BP diastolic 56–84; PULSE 77–100; RESP 17–20; TEMP 97.2–98.2; O2SAT 91–96
[2025-03-02 07:24] LABS: Hemoglobin 11.8 g/dL (13.5-17.5); Nucleated Red Blood Cells % 0.1 %
[2025-03-02 07:26] LABS: Hematocrit 36.8 % (41.0-53.0); Mean Corpuscular Hemoglobin 20.2 pg (28.0-32.0); Mean Corpuscular Volume 62.9 fL (80.0-100.0)
--- NOTE | 2025-03-02 07:26 | DVHPN2 ---
Progress Note - Dictate Date Seen: Mar 02, 2025 Medical Necessity Reason Pt with a Central, PICC or Fol: No vital signs Vital Sign Date Time Temp Pulse Resp B/P (MAP) Pulse Ox O2 Delivery O2 Flow Rate FiO2 03/02/25 05:00 97.4 86 19 124/84 (97) 94 97.4 03/01/25 14:28 Room Air* 0 21 Total Intake and Output 03/01/25 03/01/25 03/02/25 15:00 23:00 07:00 Intake Total 200 ml Balance 200 ml medications Current Medications Medications Dose Ordered Sig/Ethel Route Start Time Stop Time Status Last Admin Dose Admin Acetaminophen/ Hydrocodone Bitart 1 tab Q4HP PRN PO 03/01/25 08:45 03/01/25 14:55 1 TAB Temazepam 15 mg QHSP PRN PO 03/01/25 08:45 Ondansetron HCl 4 mg Q4HP PRN IV 03/01/25 08:45 03/01/25 16:36 4 MG Docusate Sodium 100 mg BIDPRN PRN PO 03/01/25 08:45 03/01/25 16:36 100 MG Enoxaparin Sodium 40 mg DAILY SC 03/01/25 10:00 03/01/25 10:14 40 MG Acetaminophen 650 mg Q6HP PRN PO 03/01/25 08:45 Morphine Sulfate 2 mg Q4HPRN PRN IV 03/01/25 08:45 Famotidine 40 mg DAILY PO 03/01/25 10:00 03/01/25 10:13 40 MG Nitroglycerin 0.4 mg Q5MINP PRN SL 03/01/25 08:45 Morphine Sulfate 2 mg Q30M PRN IV 03/01/25 08:45 Meclizine HCl 25 mg Q8HPRN PRN PO 03/01/25 16:15 03/01/25 16:36 25 MG laboratory and microbiology Test 03/02/25 06:21 Range/Units Serum Glucose Pending Assessment/Plan Patient is a 54-year-old gentleman who presented to the hospital after syncope and fall. He did present with low back pain/neck pain/headache after the fall. He mentions that he was walking to the kitchen when he found himself on the floor. Does not recognize/remember the circumstances around the episode. It seems that the patient was told by the that he had passed out. Denies previous episodes of the same. Denies compatible episodes. Denies any chest discomfort. Denies palpitations. Cardiology is involved for cardiac aspects of care. Patient is known to us from previous hospitalization visit when he was risk stratified prior to hernia repair surgery. Morbidly obese gentleman, not in acute distress. Complains of back/neck pain. No JVD. Mucosa is pink and wet. No carotid bruit. No goiter. Lungs are clear to auscultation. Not using accessory muscles of breathing. Cardiac: Regular, no thrill/gallop. Systolic murmur 2/6 in the apex is heard. Abdomen is soft. Obese. Bowel sound is positive. Extremities reveal 2+ edema bilaterally. Dorsalis pedis is 2+ bilateral Past medical history includes morbid obesity, hypertension, diabetes mellitus, hyperlipidemia, old history of hernia repair, history of tonsillectomy and history of umbilical hernia. Denies smoking cigarettes/substance abuse. Denies alcohol abuse. Denies relevant family history Echocardiogram of October 20, 2024 revealed ejection fraction of 55-60%, concentric left ventricular hypertrophy, normal diastolic, mild biatrial enlargement, trace mitral regurgitation and right ventricular systolic pressure of 30 mm Hg. Hemoglobin: 11.5 - 11.8 Creatinine: 0.82 - 0.93 Potassium: 4.2 - 4.4 Troponin (high sensitive): <3 - <3 BNP: 21.86 D-Dimer: 0.34 (wnl) Ferritin: 299.2 (wnl) Chest x-ray revealed: IMPRESSION: Cardiomegaly. Pulmonary venous congestion. CT of the head revealed: IMPRESSION: 1. No acute intracranial abnormality. Lumbar spine CT revealed: Evaluation is degraded by poor signal to noise ratio. Mild age-indeterminate compression of the superior endplate of T11 without retropulsion. The vertebral body heights are otherwise well-maintained. There are degenerative changes of the lumbar spine characterized by endplate osteophytosis and intervertebral disc space narrowing. Level by level evaluation is suboptimal given poor signal to noise ratio. No definite high-grade spinal stenosis is seen. A disc protrusion with associated osteophyte at L3-4 effaces the thecal sac. The paraspinal soft tissues are unremarkable. IMPRESSION: 1. Mild age-indeterminate compression of the superior endplate of T11 without retropulsion. 2. Degenerative changes of the lumbar spine as detailed. Cervical spine CT revealed: IMPRESSION: 1. No acute finding of the imaged cervical spine, with inferior C7 and the cervicothoracic junction excluded from field of view. EKG revealed sinus rhythm, first-degree AV block and nonspecific T-wave changes Tele reveals sinus rhythm Echocardiogram revealed: Left ventricle: Mild concentric left ventricular hypertrophy was seen LVEF was around 60%. Left ventricular diastolic function was considered normal. There was no wall motion abnormality. Right ventricle was normal-sized with normal systolic function. Both atria were mildly dilated. Aortic valve was not well visualized. There was no aortic insufficiency/stenosis. There was mild mitral/tricuspid regurgitation. Pulmonary valve was not well visualized. Right ventricular systolic pressure was assessed at 30 mm Hg (normal) There was no pericardial effusion. IVC was normal-sized with normal respiratory variation. Aortic root was mildly dilated at 4.1 cm. Patient is a 54-year-old gentleman who presented after syncope and fall. Does complain of low back pain/neck pain. He is found to have T11 compression fractu re. Echocardiogram of September was nonrevealing. Cardiac syncope is less likely but can not be ruled out. Telemetry monitoring is advised. Presentation is not considered acute coronary syndromes and serial high sensitive troponin has been negative. Recognizing normal BNP and clinical presentation, acute heart failure is not considered. Syncope Status post fall T11 compression fracture Degenerative disc disease s/p ventral hernia surgery by surgeon Diabetes mellitus Morbid obesity Hypertension Hyperlipidemia Anemia Microcytosis Cardiac suggestion for management: Manage on telemetry Follow-up on electrolytes and kidney function tests and correct abnormalities Long-term monitor can be arranged as outpatient Evaluation and management of anemia/microcytosis as per primary team Evaluation and management of back pain/neck pain as per primary team/neurology Further evaluation and management depends on the above and clinical course A total of 55 minutes was spent reviewing the patient record, examining the patient, making a diagnostic and therapeutic plan, discussing this plan with medical personnel, following up on diagnostic studies and following the patient for clinical stability excluding any and all procedures. At least 50% of this time was spent in direct, [id number] contact. Thank you for allowing me to participate in this patient's care. Further recommendations will depend on patient's clinical course. Please do not hesitate to contact me if you have any questions or concerns. This medical document was created using electronic medical record system with [employer] computerized dictation system. Although this document has been carefully reviewed, there may still be some phonetic and typographical errors. These areas are purely typographical due to the imperfection of the software programs, and do not reflect any compromise in the patient's medical care. Plan discussed with: Patient, Other (nurse) REJI HAWLEY MD Mar 02, 2025 07:26
[2025-03-02 07:29] LABS: Alanine Aminotransferase 11 U/L (7-40); Alkaline Phosphatase 79 U/L (46-116); Calcium 9.2 mg/dL (8.7-10.4); Chloride 106 mmol/L (98-107)
[2025-03-02 07:30] LABS: Albumin 4.1 g/dL (3.2-4.8); Anion Gap 11 (5-15); BUN/Creatinine Ratio 15.1 (10.0-20.0); Bilirubin, Total 0.9 mg/dL (0.2-1.0); Blood Urea Nitrogen 14 mg/dL (9-23); Carbon Dioxide 23 mmol/L (20-31); Potassium 4.4 mmol/L (3.5-5.1); Sodium 140 mmol/L (136-145); Total Protein 6.6 g/dL (5.7-8.2)
[2025-03-02 07:37] LABS: Glucose 151 mg/dL (74-106)
--- NOTE | 2025-03-02 13:06 | DVHPN2 ---
Progress Note - Dictate Date Seen: Mar 02, 2025 Medical Necessity Reason Pt with a Central, PICC or Fol: No vital signs Vital Sign Date Time Temp Pulse Resp B/P (MAP) Pulse Ox O2 Delivery O2 Flow Rate FiO2 03/02/25 09:00 97.7 80 18 115/69 (84) 92 97.7 03/01/25 14:28 Room Air* 0 21 Total Intake and Output 03/01/25 03/01/25 03/02/25 15:00 23:00 07:00 Intake Total 200 ml Balance 200 ml medications Current Medications Medications Dose Ordered Sig/Ethel Route Start Time Stop Time Status Last Admin Dose Admin Acetaminophen/ Hydrocodone Bitart 1 tab Q4HP PRN PO 03/01/25 08:45 03/02/25 10:54 1 TAB Temazepam 15 mg QHSP PRN PO 03/01/25 08:45 Ondansetron HCl 4 mg Q4HP PRN IV 03/01/25 08:45 03/01/25 16:36 4 MG Docusate Sodium 100 mg BIDPRN PRN PO 03/01/25 08:45 03/01/25 16:36 100 MG Enoxaparin Sodium 40 mg DAILY SC 03/01/25 10:00 03/02/25 10:48 40 MG Acetaminophen 650 mg Q6HP PRN PO 03/01/25 08:45 Morphine Sulfate 2 mg Q4HPRN PRN IV 03/01/25 08:45 Famotidine 40 mg DAILY PO 03/01/25 10:00 03/02/25 10:48 40 MG Nitroglycerin 0.4 mg Q5MINP PRN SL 03/01/25 08:45 Morphine Sulfate 2 mg Q30M PRN IV 03/01/25 08:45 Meclizine HCl 25 mg Q8HPRN PRN PO 03/01/25 16:15 03/01/25 16:36 25 MG objective General Appearance: alert, no distress HEENT: EOMI, PERRLA, normal external inspect of ears, no icterus, no nasal drainage Neck: no carotid bruit, no jugular venous distention (JVD), no lymphadenopathy Chest: normal thorax Respiratory: clear to auscultation, normal air movement Cardiovascular: regular rate and rhythm, no diastolic murmur, no jugular venous distention (JVD), no rub, no systolic murmur Abdominal: soft, no hepatomegaly, no mass, no splenomegaly, no tenderness Genitourinary: grossly normal external Musculoskeletal: no joint tenderness, no swelling Extremities: normal pulses, no calf tenderness, no clubbing, no cyanosis, no edema Skin: no bruising, no jaundice, no rash Neurological: alert, No focal deficit laboratory and microbiology Laboratory Tests 03/02/25 06:21 Test 03/02/25 06:21 Range/Units Serum Glucose 151 H 74-106 mg/dL Problem List 1. Syncope Monitor, cardiology consult, echocardiogram 2. Fall Monitor, cardiology consult, echocardiogram 3. HLD Monitor, continue atorvastatin continue home meds 4. DM II and hyperglycemia Monitor, continue glipizide, insulin ss 5. HTN Monitor, continue lisinopril, antihypertensives 6. T - II compression fracture Monitor, PPI, DVT prophylaxis Assessment/Plan Subjective Patient was admitted for syncope. Objective Patient's states patient has been working in the yard in the heat. Patient is not aware if he was dehydrated. Orthostatic vitals were taken and they are within normal limits. Cardiology is recommending outpatient heart monitor. Neurology consult is pending. Patient is no longer dizzy today. Plan Continue current treatment. Pending neurology evaluation. DC planning. Plan discussed with: Patient, Other TATO BRITT NP Mar 02, 2025 13:06
[2025-03-03 05:00] VITALS: BP_SYST 107; BP_SYST 110; BP_SYST 111; BP_DIAS 66; BP_DIAS 67; BP_DIAS 82; PULSE 80; RESP 19; TEMP 97.5; O2SAT 93
--- NOTE | 2025-03-03 06:15 | DVHPN2 ---
Progress Note - Dictate Date Seen: Mar 03, 2025 Medical Necessity Reason Pt with a Central, PICC or Fol: No vital signs Vital Sign Date Time Temp Pulse Resp B/P (MAP) Pulse Ox O2 Delivery O2 Flow Rate FiO2 03/03/25 05:00 97.5 80 19 110/82 (91) 93 97.5 107/67 (80) 111/66 (81) 03/02/25 20:00 Room Air* 0 21 Total Intake and Output 03/02/25 03/02/25 03/03/25 15:00 23:00 07:00 Intake Total 1598 ml 1050 ml Balance 1598 ml 1050 ml medications Current Medications Medications Dose Ordered Sig/Ethel Route Start Time Stop Time Status Last Admin Dose Admin Acetaminophen/ Hydrocodone Bitart 1 tab Q4HP PRN PO 03/01/25 08:45 03/02/25 10:54 1 TAB Temazepam 15 mg QHSP PRN PO 03/01/25 08:45 Ondansetron HCl 4 mg Q4HP PRN IV 03/01/25 08:45 03/01/25 16:36 4 MG Docusate Sodium 100 mg BIDPRN PRN PO 03/01/25 08:45 03/01/25 16:36 100 MG Enoxaparin Sodium 40 mg DAILY SC 03/01/25 10:00 03/02/25 10:48 40 MG Acetaminophen 650 mg Q6HP PRN PO 03/01/25 08:45 Morphine Sulfate 2 mg Q4HPRN PRN IV 03/01/25 08:45 Famotidine 40 mg DAILY PO 03/01/25 10:00 03/02/25 10:48 40 MG Nitroglycerin 0.4 mg Q5MINP PRN SL 03/01/25 08:45 Morphine Sulfate 2 mg Q30M PRN IV 03/01/25 08:45 Meclizine HCl 25 mg Q8HPRN PRN PO 03/01/25 16:15 03/01/25 16:36 25 MG laboratory and microbiology Laboratory Tests 03/02/25 06:21 Test 03/02/25 06:21 Range/Units Serum Glucose 151 H 74-106 mg/dL Assessment/Plan Patient is a 54-year-old gentleman who presented to the hospital after syncope and fall. He did present with low back pain/neck pain/headache after the fall. He mentions that he was walking to the kitchen when he found himself on the floor. Does not recognize/remember the circumstances around the episode. It seems that the patient was told by the that he had passed out. Denies previous episodes of the same. Denies compatible episodes. Denies any chest discomfort. Denies palpitations. Cardiology is involved for cardiac aspects of care. Patient is known to us from previous hospitalization visit when he was risk stratified prior to hernia repair surgery. Morbidly obese gentleman, not in acute distress. Complains of back/neck pain. No JVD. Mucosa is pink and wet. No carotid bruit. No goiter. Lungs are clear to auscultation. Not using accessory muscles of breathing. Cardiac: Regular, no thrill/gallop. Systolic murmur 2/6 in the apex is heard. Abdomen is soft. Obese. Bowel sound is positive. Extremities reveal 2+ edema bilaterally. Dorsalis pedis is 2+ bilateral Past medical history includes morbid obesity, hypertension, diabetes mellitus, hyperlipidemia, old history of hernia repair, history of tonsillectomy and history of umbilical hernia. Denies smoking cigarettes/substance abuse. Denies alcohol abuse. Denies relevant family history Echocardiogram of October 20, 2024 revealed ejection fraction of 55-60%, concentric left ventricular hypertrophy, normal diastolic, mild biatrial enlargement, trace mitral regurgitation and right ventricular systolic pressure of 30 mm Hg. Hemoglobin: 11.5 - 11.8 Creatinine: 0.82 - 0.93 Potassium: 4.2 - 4.4 Troponin (high sensitive): <3 - <3 BNP: 21.86 D-Dimer: 0.34 (wnl) Ferritin: 299.2 (wnl) Chest x-ray revealed: IMPRESSION: Cardiomegaly. Pulmonary venous congestion. CT of the head revealed: IMPRESSION: 1. No acute intracranial abnormality. Lumbar spine CT revealed: Evaluation is degraded by poor signal to noise ratio. Mild age-indeterminate compression of the superior endplate of T11 without retropulsion. The vertebral body heights are otherwise well-maintained. There are degenerative changes of the lumbar spine characterized by endplate osteophytosis and intervertebral disc space narrowing. Level by level evaluation is suboptimal given poor signal to noise ratio. No definite high-grade spinal stenosis is seen. A disc protrusion with associated osteophyte at L3-4 effaces the thecal sac. The paraspinal soft tissues are unremarkable. IMPRESSION: 1. Mild age-indeterminate compression of the superior endplate of T11 without retropulsion. 2. Degenerative changes of the lumbar spine as detailed. Cervical spine CT revealed: IMPRESSION: 1. No acute finding of the imaged cervical spine, with inferior C7 and the cervicothoracic junction excluded from field of view. EKG revealed sinus rhythm, first-degree AV block and nonspecific T-wave changes Tele reveals sinus rhythm Echocardiogram revealed: Left ventricle: Mild concentric left ventricular hypertrophy was seen LVEF was around 60%. Left ventricular diastolic function was considered normal. There was no wall motion abnormality. Right ventricle was normal-sized with normal systolic function. Both atria were mildly dilated. Aortic valve was not well visualized. There was no aortic insufficiency/stenosis. There was mild mitral/tricuspid regurgitation. Pulmonary valve was not well visualized. Right ventricular systolic pressure was assessed at 30 mm Hg (normal) There was no pericardial effusion. IVC was normal-sized with normal respiratory variation. Aortic root was mildly dilated at 4.1 cm. Patient is a 54-year-old gentleman who presented after syncope and fall. Does complain of low back pain/neck pain. He is found to have T11 compression fracture. Echocardiogram of September was nonrevealing. Cardiac syncope is less likely but can not be ruled out. Telemetry monitoring is advised. Presentation is not considered acute coronary syndromes and serial high sensitive troponin has been negative. Recognizing normal BNP and clinical presentation, acute heart failure is not considered. Syncope Status post fall T11 compression fracture Degenerative disc disease s/p ventral hernia surgery by surgeon Diabetes mellitus Morbid obesity Hypertension Hyperlipidemia Anemia Microcytosis Cardiac suggestion for management: Manage on telemetry Follow-up on electrolytes and kidney function tests and correct abnormalities Long-term monitor can be arranged as outpatient Evaluation and management of anemia/microcytosis as per primary team Evaluation and management of back pain/neck pain as per primary team/neurology Cardiac lindsey, can be followed as outpatient Further evaluation and management depends on the above and clinical course A total of 55 minutes was spent reviewing the patient record, examining the patient, making a diagnostic and therapeutic plan, discussing this plan with medical personnel, following up on diagnostic studies and following the patient for clinical stability excluding any and all procedures. At least 50% of this time was spent in direct, [id number] contact. Thank you for allowing me to participate in this patient's care. Further recommendations will depend on patient's clinical course. Please do not hesitate to contact me if you have any questions or concerns. This medical document was created using electronic medical record system with [employer] computerized dictation system. Although this document has been carefully reviewed, there may still be some phonetic and typographical errors. These areas are purely typographical due to the imperfection of the software programs, and do not reflect any compromise in the patient's medical care. Plan discussed with: Patient, Other (nurse) REJI HAWLEY MD Mar 03, 2025 06:15
[2025-03-03 08:00] VITALS: PULSE 80; PULSE 82; RESP 18; O2SAT 96
[2025-03-03 09:00] VITALS: BP 100/65; PULSE 77; RESP 18; TEMP 97.5; O2SAT 95
[2025-03-03 13:00] VITALS: BP 108/69; PULSE 80; RESP 18; TEMP 97.6; O2SAT 95
--- NOTE | 2025-03-03 16:18 | DVHDS2 ---
Discharge Summary Date of Admission Mar 01, 2025 at 08:38 Date of Discharge: Mar 03, 2025 Labs/Diagnostic Data: Laboratory Results Test 03/02/25 06:21 03/01/25 10:54 03/01/25 04:00 03/01/25 00:31 White Blood Count 10.3 10^3/uL (4.4-10.8) Red Blood Count 5.85 10^6/uL (4.5-5.90) Hemoglobin 11.8 g/dL (13.5-17.5) Hematocrit 36.8 % (41.0-53.0) Mean Corpuscular Volume 62.9 fL (80.0-100.0) Mean Corpuscular Hemoglobin 20.2 pg (28.0-32.0) Mean Corpuscular Hemoglobin Concent 32.1 g/dL (32.0-36.0) Red Cell Distribution Width 15.9 % (11.8-14.3) Platelet Count 288 10^3/uL (140-450) Mean Platelet Volume 8.7 fL (6.9-10.8) Neutrophils (%) (Auto) 71.9 % (37.0-80.0) Lymphocytes (%) (Auto) 17.4 % (10.0-50.0) Monocytes (%) (Auto) 7.9 % (0.0-12.0) Eosinophils (%) (Auto) 2.3 % (0.0-7.0) Basophils (%) (Auto) 0.5 % (0.0-2.0) Neutrophils # (Auto) 7.4 10 ^3/uL (1.6-8.6) Lymphocytes # (Auto) 1.8 10 ^3/uL (0.4-5.4) Monocytes # (Auto) 0.8 10 ^3/uL (0-1.3) Eosinophils # (Auto) 0.2 10 ^3/uL (0-0.8) Basophils # (Auto) 0 10 ^3/uL (0-0.2) Nucleated Red Blood Cells 0.1 % Sodium Level 140 mmol/L (136-145) Potassium Level 4.4 mmol/L (3.5-5.1) Chloride Level 106 mmol/L (98-107) Carbon Dioxide Level 23 mmol/L (20-31) Anion Gap 11 (5-15) Blood Urea Nitrogen 14 mg/dL (9-23) Creatinine 0.93 mg/dL (0.700-1.30) Glomerular Filtration Rate Calc 97 mL/min (>90) BUN/Creatinine Ratio 15.1 (10.0-20.0) Serum Glucose 151 mg/dL (74-106) Calcium Level 9.2 mg/dL (8.7-10.4) Total Bilirubin 0.9 mg/dL (0.2-1.0) Aspartate Amino Transferase (AST) 19 U/L (13-40) Alanine Aminotransferase (ALT) 11 U/L (7-40) Alkaline Phosphatase 79 U/L (46-116) Total Protein 6.6 g/dL (5.7-8.2) Albumin 4.1 g/dL (3.2-4.8) D-Dimer, Quantitative 0.34 mg/L FEU (0.0-0.49) Ferritin 299.2 ng/mL (22-322) Urine Color Yellow (Yellow) Urine Clarity Clear (Clear) Urine pH 5.5 (5.0-9.0) Urine Specific [place] 1.032 (1.001-1.035) Urine Protein Negative (Negative) Urine Ketones Negative (Negative) Urine Blood Negative /uL (Negative) Urine Nitrite Negative (Negative) Urine Bilirubin Negative (Negative) Urine Urobilinogen Normal mg/dL (Negative) Urine Leukocyte Esterase Negative /uL (Negative) Urine RBC None seen /hpf (0 - 3) Urine Microscopic WBC 1 /HPF (0-3) Urine Squamous Epithelial Cells None seen /hpf (<5) Urine Bacteria None seen /hpf (None Seen) Urine Mucus Few (None Seen) Urine Glucose Normal mg/dL (Normal) Troponin I High Sensitivity < 3 ng/L (</=54) Test 02/28/25 23:34 B-Type Natriuretic Peptide 21.86 pg/mL (0-100) Other Laboratory Tests 03/02/25 06:21 Brief Hx & Hospital Course: 54 y male with hx of DM, HTN, HLD c/o syncope. Patient sts that he was walking to his kitchen and then woke up on the floor. Patient was admitted on 03/01/2025 for syncopal episode most likely due to dehydration. Patient was seen by cardiology. Patient on longer complaining of dizziness. Blood pressure has remained stable. Patient is diabetic. Glucose was checked prior to discharge. Patient glucose levels were normal. Paient had complians of nausea and vomiting. KUB was done. Patient was found to be constipated. No obstruction was found. Patient instructed to follow up with their PCP in one week. There were no complaints or new complaints upon discharge, all questions and concerns were answered. Patient was advised to return to the ER or call 911 if any headaches, dizziness, shortness of breath, chest pain, bleeding, fevers, or worsening of medical condition. Patient/Family was counseled about treatment plan, medications, possible side effects, patient verbalized understanding. All questions were answered to the best of my ability. The patient symptoms improved and they are okay to be DC. Condition at Discharge: Stable Final Diagnosis/Problems List Syncope, most likely related to dehydration Hypertension Compression fracture T11-old Discharge Disposition: Home Discharge Instruct/Medications Diet: Consistent carbohydrate, Cardiac 2g Na,low cholest Activity: Light activity Follow Up/Referral: pcp 1 week Scheduled Atorvastatin Calcium (Lipitor), 20 MG PO DAILY, (Reported) Cholecalciferol (Vitamin D3), 25 MCG PO DAILY, (Reported) Glipizide (Glipizide), 10 MG PO DAILY, (Reported) Insulin Aspart Protamine & Asp (Novolog Mix 70/30 Prefill (70-30) 100 Unit/ml), 1 INJ SC BID, (Reported) Lidocaine (Lidoderm 5% Topical Patch), 1 PATCH TOP DAILY Lisinopril (Lisinopril), 10 MG PO DAILY, (Reported) Meloxicam (Meloxicam), 1 TAB PO DAILY Metformin Hydrochloride (Metformin Hcl), 1 TAB PO BID, (Reported) Semaglutide (Ozempic), 1 MG SC QWEEKLY, (Reported) Scheduled PRN Cyclobenzaprine Hcl (Cyclobenzaprine Hcl), 1 TAB PO TID PRN Hydrocodone-Acetaminophen (Hydrocodone Bitartrate/AC 5-325 mg), 1 TAB PO Q6HP PRN Hydrocodone-Acetaminophen (Hydrocodone Bitartrate/AC 5-325 mg), 1 TAB PO TIDPRN PRN Ondansetron Odt 4MG Tab (Zofran Po), 4 MG PO Q8HP PRN Discontinued Medications Azithromycin (Zithromax), 1 PACK PO ONCE Cephalexin ( Keflex 500), 1 CAP PO QID Ciprofloxacin Hcl (Cipro), 1 TAB PO BID Ibuprofen (Ibuprofen), 1 TAB PO TID Ibuprofen Micronized (Ibuprofen), 800 MG PO TIDWM Ibuprofen Micronized (Ibuprofen), 800 MG PO TID PRN Methylprednisolone (Medrol Dosepak), 4 MG PO UD Naloxone HCl (Narcan), 4 MG NA ONCE Discharge Statement: "Patient was advised to return to the ER or call 911 if any headaches, dizziness, shortness of breath, chest pain, abdominal pain, bleeding, fevers, or worsening of medical condition. Patient was counseled about treatment plan, medications, possible side effects, patientverbalized understanding. All questions were answered to the best of my ability. This discharge took greater then 30 minutes in planning, reviewing documentation, counseling the patient, and discussing with other team members." ASSESSMENT ASSESSMENT Assessment Syncope, most likely related to dehydration Hypertension Compression fracture T11-old [employer] Mar 03, 2025 16:18
[2025-03-03] MEDS ORDERED: DEXTROSE (50%) 50ML SYRG IV PRN (16:45)
[2025-03-03 17:00] VITALS: BP 108/61; PULSE 77; RESP 18; TEMP 97.7; O2SAT 91
[2025-03-03] MEDS: InsuLIN REG 1unit/0.01ml Soln (100units/ml) SC SCH (17:00)
[2025-03-03] MEDS: ACCU-CHEK COMFORT CURVE STRIP VI SCH (17:00)
[2025-03-03 17:26] VITALS: BP 117/81; PULSE 99; RESP 18; TEMP 98; O2SAT 96
--- NOTE | 2025-03-03 18:09 | DVH ---
Indication: DIARRHEA Technique: XY ABDOMEN 2 VIEWXY Comparison: None FINDINGS/IMPRESSION: Multiple loops of distended bowel. Moderate volume stool within the colon. Nonspecific pattern overa ll. No evidence for free intraperitoneal air. Pelvic vascular phleboliths. Thoracic/lumbar dextrocurvature.
[2025-03-03] MEDS ORDERED: InsuLIN REG 1unit/0.01ml Soln (100units/ml) SC SCH (22:00)
== END 2025-03-03 20:00 | disposition home or self-care (01) | DRG 422 ==
LOC: EDBD 21:20 → ER 21:20 → OVERFLOW 03-01 08:38 → TELE-WESTW 03-01 22:34
PROVIDERS: ADMIT Nurse Practitioner; ATTEND Nurse Practitioner
DX: E86.0 Dehydration (principal); M48.54XA Collapsed vertebra, not elsewhere classified, thoracic region, initial encounter for fracture; E11.65 Type 2 diabetes mellitus with hyperglycemia; E66.01 Morbid (severe) obesity due to excess calories; D50.9 Iron deficiency anemia, unspecified; E78.5 Hyperlipidemia, unspecified; I10 Essential (primary) hypertension; I07.1 Rheumatic tricuspid insufficiency; Z68.41 Body mass index [BMI] 40.0-44.9, adult; K59.00 Constipation, unspecified; M54.2 Cervicalgia; I44.0 Atrioventricular block, first degree; M47.816 Spondylosis without myelopathy or radiculopathy, lumbar region; M25.78 Osteophyte, vertebrae; Z83.3 Family history of diabetes mellitus; Z80.1 Family history of malignant neoplasm of trachea, bronchus and lung; Z79.899 Other long term (current) drug therapy; Z79.84 Long term (current) use of oral hypoglycemic drugs; Z79.4 Long term (current) use of insulin
CPT/HCPCS: 36415; 70450; 71045; 72125; 72131; 74021; 80048; 80053; 81001; 82728; 82962; 83880; 84484; 85025; 85379; 93005; 93306; 97163; G0378; J1815; J2405